=== PATIENT | male | born 1980 | race Caucasian/White ===

== ENCOUNTER 2020-03-17 13:10 | Outpatient (REF) | payer OTHER, SELFPAY | END 2020-03-17 13:11 | disposition home or self-care (01) | LOC: HO.LAB 13:10 | PROVIDERS: Visit Provider Internal Medicine | DX: Z20.822 Contact with and (suspected) exposure to COVID-19 (principal) | CPT/HCPCS: 36415; C9803; U0003; U0005 ==

== ENCOUNTER → 2020-12-12 15:11 | Outpatient (BNVA) | payer SELFPAY | PROVIDERS: Visit Provider Internal Medicine | DX: Z02.79 Encounter for issue of other medical certificate (principal) ==

== ENCOUNTER 2021-11-01 17:48 | Emergency (ER) | payer OTHER, SELFPAY ==
--- NOTE | ~2021-11-01 | XR_ITS ---
EXAMINATION: XR CHEST CLINICAL INFORMATION: Chest pain COMPARISON: None TECHNIQUE: Frontal view of the chest was obtained. FINDINGS: Lungs are hypoinflated with mild pulmonary vascular crowding and/or mild atelectasis. No airspace consolidation. No pleural effusion or pneumothorax. Cardiomediastinal silhouette is within normal limits. No evidence of pulmonary edema. No acute osseous injury. XR/XR chest 1V IMPRESSION: 1. Hypoinflated lungs with mild atelectasis. No acute pulmonary process identified.
--- NOTE | 2021-11-01 18:01 | ECG_ITS ---
Test Reason : chest pain Blood Pressure : / mmHG Vent. Rate : 073 BPM Atrial Rate : 073 BPM P-R Int : 154 ms QRS Dur : 080 ms QT Int : 398 ms P-R-T Axes : 038 071 096 degrees QTc Int : 438 ms Sinus rhythm with occasional Premature ventricular complexes T wave abnormality, consider lateral ischemia Abnormal ECG No previous ECGs available Referred By: Generic ED Physician Electronically Signed By:HAROLDO LYNN
--- NOTE | 2021-11-01 18:15 | ED_ITS ---
HPI - Chest Pain General Chief Complaint: Chest Pain Stated Complaint: chest and nck pain,palpatations Time Seen by Provider: 11/01/21 18:05 Source: patient Mode of arrival: ambulatory Limitations: no limitations History of Present Illness HPI narrative: Patient comes to the emergency room complaining of chest pressure that started approximately 20 hours ago. Patient states that he was at work, started feeling chest discomfort, occasional coughing. States that eventually the chest pressure statin radiating towards the left shoulder and left upper back. Patient went home, went to sleep hoping it would go away. In the morning, the symptoms had gotten better, but approximately 6 hours ago, patient started having chest pressure on the left side, and has been constant since then. Patient states that sometimes he feels a bit short of breath, then he takes big breaths and makes his chest hurt more. Related Data Previous Rx's Medication Instructions Recorded aspirin 81 mg capsule 81 mg PO DAILY #30 caps 11/01/21 Allergies Allergy/AdvReac Type Severity Reaction Status Date / Time Iodinated Contrast Media Allergy Mild swelling Unverified 10/29/19 17:58 [IV CONTRAST] of eyelids and hives 45 mins after Review of Systems Review of Systems: Constitutional : No Weight loss, No Fever, No Chills, No Night Sweats, No Fatigue, No Malaise ENT/Mouth : No Hearing loss, No Ear Pain, No Nasal Congestion, No Sinus Pain, No Hoarseness, No sore throat, No Rhinorrhea, No Swallowing Difficulty Eyes: No Eye Pain, No Swelling, No Redness, No Foreign Body, No Discharge, No Vision Changes Cardiovascular : Complaining of chest pressure constantly for the last 6 hours, intermittent shortness of breath Respiratory : No Cough, No Sputum, No Wheezing, No Smoke Exposure, No Dyspnea Gastrointestinal : No Nausea, No Vomiting, No Diarrhea, No Constipation, No abdominal Pain, No Hematochezia, No Melena Genitourinary : no irregular bleeding, No Dysuria, No Urinary Frequency, No Hematuria, No Urinary Incontinence, No Urgency, No Flank Pain, No Urinary Flow Changes, No Hesitancy Musculoskeletal : No joint pain, No Myalgias, No Joint Swelling Skin : No Skin Lesions, No rash Neuro : No Weakness, No Numbness, No Paresthesias, No Loss of Consciousness, No Dizziness, No Headache Psych : No Anxiety/Panic, No Depression, No SI/HI/AH/VH, No Social Issues, Heme/Lymph: No Bruising, No Bleeding,No Lymphadenopathy Endocrine : No Polyuria, No Polydipsia, No Temperature Intolerance [facility] Past Medical History Medical History Diabetes type 2, controlled Hyperlipidemia Hypertension Social History Social History Advance Directives: No Advance Directives Information Provided: No Physical Exam Vital Signs: Vital Signs: Last Vital Signs Temp 97.0 F 11/01/21 21:51 Pulse 67 11/01/21 21:51 Resp 16 11/01/21 21:51 BP 129/67 11/01/21 21:51 Pulse Ox 98 11/01/21 21:51 O2 Del Method 11/01/21 21:51 BMI result Body Mass Index 31.8 Const: Other: Appearance: Alert. Oriented X3. No acute distress. Eyes: Pupils equal, round and reactive to light. ENT: Pharynx normal. Neck: Normal inspection. Neck supple. No lymph nodes noted. No crepitus CVS: Normal heart rate and rhythm. Pulses normal. Normal S1 and S2, reproducible chest pressure/discomfort to palpation in the substernal and left- sided chest area Respiratory: No respiratory distress. Breath sounds normal. No Wheezing. No rales Abdomen: Soft and nontender. No rigidity. No distention. Skin: Skin warm and dry. Normal skin color. Normal skin turgor. Extremities: No lower extremity edema. No Lacerations. No Rash Neuro: Oriented X 3. No motor deficit. No sensory deficit. Moving all extremities. No slurred speech. CN 2 through 12 grossly intact Psych: calm, cooperative, a bit anxious Course Course Course Narrative: We do not have previous EKGs for comparison, patient's EKG from today shows T- wave inversions in V5 V6, PVCs, sinus rhythm, heart rate 73, QTC 438. All of patient's labs are pending. We will repeat EKG in 1 hour. EKG did not show any changes from 1st EKG. Patient was given aspirin. Troponin x2 is negative. Patient was discussed with Dr. Alston who initially recommended observation. Dr. Cleveland from the hospitalist team considers that this pain is atypical chest pain/musculoskeletal, also discussed the patient with Dr. Alston, who agrees to have the patient be discharged and have follow-up with Cardiology. MDM - Chest Pain Lab Data Result diagrams: 11/01/21 18:27 11/01/21 18:27 Labs: Lab Results 11/01/21 11/01/21 11/01/21 Range/Units 18:27 18:27 18:27 WBC 9.0 (4.8-10.8) X10*3/uL RBC 4.57 L (4.60-5.80) X10*6/uL Hgb 14.4 (14.0-18.0) g/dl Hct 41.5 L (42.0-52.0) % MCV 90.8 (80.0-98.0) fL MCH 31.5 (27.0-33.0) pg MCHC 34.7 (31.0-36.0) g/dl RDW 12.9 (11.0-16.0) % Plt Count 245 (160-400) X10*3/uL MPV 9.6 (9.4-12.4) fL Immature Gran % (Auto) 0.3 (0.0-0.4) % Neut % (Auto) 54.6 (45-73) % Lymph % (Auto) 34.0 (20-40) % Barnes % (Auto) 7.6 (2-11) % Eos % (Auto) 2.9 (0-4) % Baso % (Auto) 0.6 (0-2) % Lymph # (Auto) 3.1 (1.2-4.9) X10*3/uL Barnes # (Auto) 0.7 (0.1-1.2) X10*3/uL Eos # (Auto) 0.3 (0.0-0.4) X10*3/uL Baso # (Auto) 0.1 (0.0-0.2) X10*3/uL Abs Immat Gran (auto) 0.03 (0.00-0.03) X10*3/uL Absolute Neuts (auto) 4.9 (2.0-8.3) x10*3/uL Absolute Nucleated RBC 0.000 (0.0-0.012) X10*3/uL Nucleated RBC % (auto) 0.0 (0.0-0.2) /100WBC PT 11.8 (10.0-13.1) SEC INR 1.0 (0.9-1.1) APTT (26.0-36.4) SEC D-Dimer High Sensitivty NG/ML Sodium 139 (135-145) mmol/L Potassium 4.2 (3.3-5.1) mmol/L Chloride 102 (96-108) mmol/L Carbon Dioxide 26 (22-29) mmol/L Anion Gap 15 (12-20) BUN 15 (9-16) mg/dL Creatinine 0.98 (0.5-1.4) mg/dL Estim Creat Clear Calc 86.8 Estimated GFR > 60 Random Glucose 296 H (60-115) mg/dL Calcium 9.0 (8.4-10.2) mg/dL Magnesium 2.1 (1.6-2.6) mg/dL Total Bilirubin 0.5 (0.0-1.0) mg/dL Direct Bilirubin 0.2 (0.0-0.5) mg/dL AST 21 (5-37) U/L ALT 26 (0-40) U/L Alkaline Phosphatase 105 (39-117) U/L Troponin I High Sens (<3.5-35.0) ng/L Total Protein 7.6 (6.5-8.0) g/dL Albumin 4.6 (3.5-5.0) g/dL Urine Opiates Screen (Not Detect) Urine Fentanyl Screen (Not Detect) Ur Barbiturates Screen (Not Detect) Ur Phencyclidine Scrn (Not Detect) Ur Amphetamines Screen (Not Detect) U Benzodiazepines Scrn (Not Detect) Urine Cocaine Screen (Not Detect) U Marijuana (THC) Screen (Not Detect) COVID-19 ([facility]) (Negative) COVID-19 Clin Com 11/01/21 11/01/21 11/01/21 Range/Units 18:27 18:27 18:27 WBC (4.8-10.8) X10*3/uL RBC (4.60-5.80) X10*6/uL Hgb (14.0-18.0) g/dl Hct (42.0-52.0) % MCV (80.0-98.0) fL MCH (27.0-33.0) pg MCHC (31.0-36.0) g/dl RDW (11.0-16.0) % Plt Count (160-400) X10*3/uL MPV (9.4-12.4) fL Immature Gran % (Auto) (0.0-0.4) % Neut % (Auto) (45-73) % Lymph % (Auto) (20-40) % Barnes % (Auto) (2-11) % Eos % (Auto) (0-4) % Baso % (Auto) (0-2) % Lymph # (Auto) (1.2-4.9) X10*3/uL Barnes # (Auto) (0.1-1.2) X10*3/uL Eos # (Auto) (0.0-0.4) X10*3/uL Baso # (Auto) (0.0-0.2) X10*3/uL Abs Immat Gran (auto) (0.00-0.03) X10*3/uL Absolute Neuts (auto) (2.0-8.3) x10*3/uL Absolute Nucleated RBC (0.0-0.012) X10*3/uL Nucleated RBC % (auto) (0.0-0.2) /100WBC PT (10.0-13.1) SEC INR (0.9-1.1) APTT 38.3 H (26.0-36.4) SEC D-Dimer High Sensitivty < 150 NG/ML Sodium (135-145) mmol/L Potassium (3.3-5.1) mmol/L Chloride (96-108) mmol/L Carbon Dioxide (22-29) mmol/L Anion Gap (12-20) BUN (9-16) mg/dL Creatinine (0.5-1.4) mg/dL Estim Creat Clear Calc Estimated GFR Random Glucose (60-115) mg/dL Calcium (8.4-10.2) mg/dL Magnesium (1.6-2.6) mg/dL Total Bilirubin (0.0-1.0) mg/dL Direct Bilirubin (0.0-0.5) mg/dL AST (5-37) U/L ALT (0-40) U/L Alkaline Phosphatase (39-117) U/L Troponin I High Sens 3.6 (<3.5-35.0) ng/L Total Protein (6.5-8.0) g/dL Albumin (3.5-5.0) g/dL Urine Opiates Screen (Not Detect) Urine Fentanyl Screen (Not Detect) Ur Barbiturates Screen (Not Detect) Ur Phencyclidine Scrn (Not Detect) Ur Amphetamines Screen (Not Detect) U Benzodiazepines Scrn (Not Detect) Urine Cocaine Screen (Not Detect) U Marijuana (THC) Screen (Not Detect) COVID-19 ([facility]) Negative (Negative) COVID-19 Clin Com See Note 11/01/21 11/01/21 Range/Units 19:49 20:25 WBC (4.8-10.8) X10*3/uL RBC (4.60-5.80) X10*6/uL Hgb (14.0-18.0) g/dl Hct (42.0-52.0) % MCV (80.0-98.0) fL MCH (27.0-33.0) pg MCHC (31.0-36.0) g/dl RDW (11.0-16.0) % Plt Count (160-400) X10*3/uL MPV (9.4-12.4) fL Immature Gran % (Auto) (0.0-0.4) % Neut % (Auto) (45-73) % Lymph % (Auto) (20-40) % Barnes % (Auto) (2-11) % Eos % (Auto) (0-4) % Baso % (Auto) (0-2) % Lymph # (Auto) (1.2-4.9) X10*3/uL Barnes # (Auto) (0.1-1.2) X10*3/uL Eos # (Auto) (0.0-0.4) X10*3/uL Baso # (Auto) (0.0-0.2) X10*3/uL Abs Immat Gran (auto) (0.00-0.03) X10*3/uL Absolute Neuts (auto) (2.0-8.3) x10*3/uL Absolute Nucleated RBC (0.0-0.012) X10*3/uL Nucleated RBC % (auto) (0.0-0.2) /100WBC PT (10.0-13.1) SEC INR (0.9-1.1) APTT (26.0-36.4) SEC D-Dimer High Sensitivty NG/ML Sodium (135-145) mmol/L Potassium (3.3-5.1) mmol/L Chloride (96-108) mmol/L Carbon Dioxide (22-29) mmol/L Anion Gap (12-20) BUN (9-16) mg/dL Creatinine (0.5-1.4) mg/dL Estim Creat Clear Calc Estimated GFR Random Glucose (60-115) mg/dL Calcium (8.4-10.2) mg/dL Magnesium (1.6-2.6) mg/dL Total Bilirubin (0.0-1.0) mg/dL Direct Bilirubin (0.0-0.5) mg/dL AST (5-37) U/L ALT (0-40) U/L Alkaline Phosphatase (39-117) U/L Troponin I High Sens < 3.5 (<3.5-35.0) ng/L Total Protein (6.5-8.0) g/dL Albumin (3.5-5.0) g/dL Urine Opiates Screen Not Detected (Not Detect) Urine Fentanyl Screen Not Detected (Not Detect) Ur Barbiturates Screen Not Detected (Not Detect) Ur Phencyclidine Scrn Not Detected (Not Detect) Ur Amphetamines Screen Not Detected (Not Detect) U Benzodiazepines Scrn Not Detected (Not Detect) Urine Cocaine Screen Not Detected (Not Detect) U Marijuana (THC) Screen Not Detected (Not Detect) COVID-19 ([facility]) (Negative) COVID-19 Clin Com Scores Heart Score History: -0- slightly suspicious ECG: -1- non specific repolarization disturbance Age: -0- < or = 45 Risk factory: -2- 3 or more risk factors or treated atherosclerosis Troponin: -0- < or = normal limit Score: 3 Risk: 1.7% Discharge Plan Discharge Clinical Impression: Atypical chest pain Patient Disposition: Home, Self-Care Instructions: Chest Pain (ED) Additional Instructions: Please follow-up with your primary care physician tomorrow. If you have any worsening or new symptoms, please return to the emergency room or call 911 Prescriptions: New aspirin 81 mg capsule 81 mg PO DAILY Qty: 30 0RF
[2021-11-01 18:16] VITALS: BP 161/83; PULSE 76; RESP 14; TEMP 36.8; O2SAT 97
[2021-11-01 18:32] LABS: MANUAL DIFF FLAG NO
[2021-11-01 18:33] LABS: Basophils Absolute Auto 0.1 X10*3/uL (0.0-0.2); Basophils Percent Auto 0.6 % (0-2); Eosinophils Absolute Auto 0.3 X10*3/uL (0.0-0.4); Eosinophils Percent Auto 2.9 % (0-4); Hematocrit 41.5 % (42.0-52.0); Hemoglobin 14.4 g/dl (14.0-18.0); Imm Gran Abs Auto 0.03 X10*3/uL (0.00-0.03); Imm Gran Pct Auto 0.3 % (0.0-0.4); Lymphocytes Absolute Auto 3.1 X10*3/uL (1.2-4.9); Mean Corpuscular HGB Conc 34.7 g/dl (31.0-36.0); Mean Corpuscular Hemoglobin 31.5 pg (27.0-33.0); Mean Corpuscular Volume 90.8 fL (80.0-98.0); Mean Platelet Volume 9.6 fL (9.4-12.4); Monocytes Absolute Auto 0.7 X10*3/uL (0.1-1.2); Monocytes Percent Auto 7.6 % (2-11); Neutrophils Absolute Auto 4.9 x10*3/uL (2.0-8.3); Neutrophils Percent Auto 54.6 % (45-73); Platelet Count 245 X10*3/uL (160-400); Red Blood Count 4.57 X10*6/uL (4.60-5.80); Red Cell Distribution Width 12.9 % (11.0-16.0)
[2021-11-01 18:49] LABS: Prothrombin Time 11.8 SEC (10.0-13.1)
[2021-11-01 18:51] VITALS: BMI 31.8
[2021-11-01 18:52] VITALS: BP 160/85; PULSE 72; RESP 18; TEMP 36.8; O2SAT 97; BMI 31.8
[2021-11-01 18:52] LABS: Partial Thromboplastin Time 38.3 SEC (26.0-36.4)
[2021-11-01 18:54] LABS: Troponin-I High Sensitivity 3.6 ng/L (<3.5-35.0)
[2021-11-01 18:56] LABS: Alanine Aminotransferase 26 U/L (0-40); Albumin Level 4.6 g/dL (3.5-5.0); Alkaline Phosphatase 105 U/L (39-117); Anion Gap 15 (12-20); Aspartate Amino Transferase 21 U/L (5-37); Bilirubin Direct 0.2 mg/dL (0.0-0.5); Bilirubin Total 0.5 mg/dL (0.0-1.0); Blood Urea Nitrogen 15 mg/dL (9-16); Carbon Dioxide 26 mmol/L (22-29); Chloride 102 mmol/L (96-108); Creatinine Clr Calc Pharmacy 86.8; Estimated Glomerular Filt Rate > 60; Glucose Random 296 mg/dL (60-115); Magnesium 2.1 mg/dL (1.6-2.6); Potassium 4.2 mmol/L (3.3-5.1); Sodium 139 mmol/L (135-145); Total Protein 7.6 g/dL (6.5-8.0)
[2021-11-01 18:57] LABS: COVID-19 Test Negative (Negative)
[2021-11-01 19:29] LABS: D Dimer High Sensitivity < 150 NG/ML
[2021-11-01 19:48] VITALS: BP 143/71; PULSE 69; RESP 18; TEMP 36.9; O2SAT 98
--- NOTE | 2021-11-01 19:53 | ECG_ITS ---
Test Reason : CHEST PAIN Blood Pressure : / mmHG Vent. Rate : 067 BPM Atrial Rate : 067 BPM P-R Int : 158 ms QRS Dur : 080 ms QT Int : 412 ms P-R-T Axes : 035 061 128 degrees QTc Int : 435 ms Normal sinus rhythm ST & T wave abnormality, consider lateral ischemia and inferior ischemia Abnormal ECG When compared with ECG of 01-NOV-2021 18:03, Premature ventricular complexes are no longer Present Referred By: Radha Corbett Electronically Signed By:HAROLDO LYNN
--- NOTE | 2021-11-01 19:56 | PC.NURSE ---
PATIENT WAS GIVEN [employer] SANDWICH FOR DINNER .
[2021-11-01 20:12] LABS: Amphetamine Screen Urine Not Detected (Not Detect); Barbiturates, Urine Not Detected (Not Detect); Benzodiazepines Screen Urine Not Detected (Not Detect); Cannabinoid Screen Urine Not Detected (Not Detect); Cocaine Screen Urine Not Detected (Not Detect); Fentanyl, urine Not Detected (Not Detect); Opiate Screen Urine Not Detected (Not Detect); Phencyclidine Screen Urine Not Detected (Not Detect)
[2021-11-01 21:01] LABS: Troponin-I High Sensitivity < 3.5 ng/L (<3.5-35.0)
[2021-11-01 21:51] VITALS: BP 129/67; PULSE 67; RESP 16; TEMP 36.1; O2SAT 98
[2021-11-01] MEDS: Aspirin Enteric Coated 325 MG TABLET.DR PO (22:25)
--- NOTE | 2021-11-01 22:45 | PC.NURSE ---
Patient greenlandic speaking only. Patient c/o chest pressure 09/20 MD aware given aspirin po. Patient ambulates independently. Ekg done and labs. Will continue ot with plan of care.
--- NOTE | 2021-11-01 22:54 | PM.EVENT ---
Event Note Date of Service: 11/01/21 Event Note: This is a 41-year-old male with a pertinent history of type 2 diabetes mellitus on metformin and essential hypertension on lisinopril who presents to the emergency department for chest discomfort. Patient states the chest discomfort started 1 night prior to presentation and has been constant since. No sweating, shortness of breath. The chest discomfort does not increase on ambulation and does not relieve with rest. No similar episodes in the past. Patient did have an episode of nausea when he tried to eat chicken with rice on the day of presentation. It was associated with burping and symptoms of gastroesophageal reflux disease. Patient denies family history of early CAD/ACS. On physical examination, patient has reproducible chest discomfort on sternal palpation Assessment and plan: #. Chest discomfort, noncardiac: No concern for ACS at this time. Okay to discharge patient with close follow-up with PCP for optimization of risk factors : hypertension and diabetes mellitus. Noted negative troponin x2. May benefit from oral H2 susie/proton pump inhibitor. Does have nonsignificant ST changes on EKG, likely chronic. HEART score : 2, risk of MACE 0.9-1.7%.
[2021-11-01 23:47] VITALS: BP 126/71; PULSE 71; RESP 16; O2SAT 97
== END 2021-11-02 00:33 | disposition home or self-care (01) ==
PROVIDERS: Emergency Provider Emergency Medicine; PCP Internal Medicine
DX: R07.89 Other chest pain (principal); Z20.822 Contact with and (suspected) exposure to COVID-19; E11.9 Type 2 diabetes mellitus without complications; I10 Essential (primary) hypertension; E78.5 Hyperlipidemia, unspecified; Z79.84 Long term (current) use of oral hypoglycemic drugs; Z79.899 Other long term (current) drug therapy
CPT/HCPCS: 36415; 71045; 80048; 80076; 80307; 83735; 84484; 85025; 85379; 85610; 85730; 87635; 93005; 99284; 99285

== ENCOUNTER → 2021-11-02 13:39 | Outpatient (REF) | payer OTHER, SELFPAY ==
--- NOTE | 2021-11-02 13:48 | CA_ITS ---
Transthoracic Echocardiogram Patient (Last, First, Middle): Олег Ryder, Gender: Male Date of : 1980 Age: 41 Procedure Date: 11/02/2021 Procedure Type: Transthoracic Echocardiogram Location: OP Height: 152.4 cm Weight: 77.11 kg BSA: 1.74 m2 Heart Rate: bpm BP: 118 / 80 mmHg Lead Inspector: MAHSA Referring MD: Doug Alston MD Symptoms: R07.2 - Precordial pain Study Quality: Adequate ECG Rhythm: Sinus Conclusions: - The left ventricular systolic function is normal. The calculated ejection fraction is 65% by biplane method. - No obvious valvular pathology seen on this study. Findings Left Ventricle Normal left ventricular cavity size. There is normal left ventricular wall thickness. The left ventricular systolic function is normal. The calculated ejection fraction is 65% by biplane method. There is no evidence of regional wall motion abnormalities. Diastolic function is normal for age. Right Ventricle Normal right ventricular cavity size and systolic function. Atria Both atria are normal in size. Aortic Valve There is a normal trileaflet aortic valve. There is no aortic valve stenosis. There is no aortic valve regurgitation. Mitral Valve The mitral valve appears normal. There is no mitral valve regurgitation. There is no mitral valve stenosis. Pulmonic Valve The pulmonic valve is likely normal. Tricuspid Valve Normal tricuspid valve structure. There is trace tricuspid valve regurgitation. There is no evidence of pulmonary hypertension. Great Vessels The asc aorta is normal in size. Venous The inferior vena cava is normal in size and collapses greater than 50% with inspiration. Pericardium/Pleural There is no evidence of pericardial effusion. Prior Study Comparison No prior study available for comparison. Recommendations, Care & Conclusions No obvious valvular pathology seen on this study. Measurements 2D Linear Measurements IVSd: 0.99 0.6-0.9/0.6-1.0 cm LVIDd: 4.69 3.9-5.3/4.2-5.9 cm LVIDd Index: 2.70 2.4-3.2/2.2-3.1 cm/m2 LVIDs: 3.07 2.0-3.6 cm LVPWd: 0.98 0.7-1.1 cm LA Diam: 3.40 2.7-3.8/3.0-4.0 cm LAIDs Index: 1.95 1.5-2.3 cm/m2 LV Mass: 199.11 67-162/88-224 g LV Mass Index: 114.43 43-95/49-115 g/m2 LVOT Diam: 1.90 3.0+(-)1.3 cm 2D Systolic Function EF 4C: 64.70 >55% EF 2C: 65.90 >55% EF BiP: 64.70 >55% Mitral Valve MV Pk E: 0.69 MV PK A: 0.80 MV Decel Time: 157.00 E/A: 0.90 E'Lateral: 8.92 E'Medial: 6.09 E/E' Med: 11.30 E/E' Lat: 7.70 PHT: 46.00 MVA PHT: 4.78 Decel [place]: 4.41 Aortic Valve AoV Pk [place]: 1.40 AoV Mn [place]: 0.98 AoV VTI: 0.30 AoV Pk Grad: 8.00 Aov Mn Grad: 4.00 ZHOU Cont.VTI: 2.13 LVOT LVOT Pk [place]: 1.20 LVOT Mn [place]: 0.75 LVOT VTI: 0.23 LVOT Pk Grad: 6.00 LVOT Mn Grad: 3.00 LVOT Diam: 1.90 LVOT Area: 2.84 Diastolic Function MV Pk E: 0.69 MV Pk A: 0.80 E/A: 0.90 E'Medial: 6.09 E/E' Med: 11.30 E' Laterial: 8.92 E/E' Lat: 7.70 Right Ventricle TAPSE (mm): 21.20 TVS' [place]: 9.90 Tricuspid Valve TR Pk [place]: 2.07 TR Pk Grad: 17.00 RA Press: 3.00 RVSP: 20.00 Great Vessels Aorta Sinus of Valsalva: 3.36 2.0-3.[address] [place]: 2.35 1.7-3.4 cm Ao Asc: 3.10 2.1-3.4 cm Updated in Other Vendor System with Status of Final Doug Alston MD electronically signed on 11/02/2021 3:18:52 PM with status of Final
== END ==
LOC: HO.CARD 13:39
PROVIDERS: Visit Provider Internal Medicine
DX: R07.2 Precordial pain (principal)
CPT/HCPCS: 93306

== ENCOUNTER → 2021-11-28 08:48 | Outpatient (REF) | payer OTHER, SELFPAY ==
--- NOTE | 2021-11-28 08:51 | CA_ITS ---
Acquisition Time: 2021-11-28 08:57:05 Total Exercise Time: 00:06:00 Test Indications: R07.L2 PRECORDIAL PAIN Medications: SEE H Protocol: COLE Max HR: 129 BPM 72% of Pred: 179 BPM Max BP: 162/080 mmHG Max Work Load: 7.0 METS Exercise stress test with exercise 6 min of Cole protocol, achieving 72% MPHR, with report of 6/10 left chest pressure, without arrythmia, with normotensive response to exercise, with baseline EKG showing T wave abnormality/ inversions inferiorly and V4-V6 - then with exercise there are ST depressions V4-V6 suggestive of ischemia. In recovery his chest pressure gradually improved and resolved. Test reviewed with Dr Yee. Will order a pharmacological nuclear stress test for further evaluate for ischemia. Referred By: Doug Alston Overread By: MAG RAPP
== END ==
LOC: HO.CARD 08:48
PROVIDERS: Visit Provider Internal Medicine
DX: R07.2 Precordial pain (principal)
CPT/HCPCS: 93017

== ENCOUNTER → 2021-12-18 08:28 | Outpatient (REF) | payer OTHER, SELFPAY ==
--- NOTE | ~2021-12-18 | NM_ITS ---
Myocardial perfusion study Indication: Precordial chest pain to evaluate for myocardial ischemia Technique: The patient was brought in for a Lexiscan perfusion study on 12/18/2021. Patient performed low-level exercise and was injected 0.4 mg of Lexiscan intravenously. Within a minute of injection, 25 mCi of sestamibi was given intravenously. Images were obtained using the SPECT gamma camera interlaced with the gating device. Images were obtained in supine position. Resting perfusion study was performed on 12/19/2021. Patient was administered 25 mCi of sestamibi intravenously at rest. Images were then obtained in supine position. Images obtained with and without CT attenuation. Total DLP 88 mGy-cm. Images were processed with the software and compared side to side in short axis, horizontal long axis and vertical long axis views. Findings: The stress perfusion study was suboptimal due to intense subdiaphragmatic uptake interfering with inferior wall uptake and also reduced uptake in the myocardial segments. Non attenuated images show possibly moderately reduced uptake in the basal inferior and mildly reduced uptake in the mid and inferoapical wall of the LV myocardium. Inferolateral wall of the LV myocardium. Attenuation corrected images show diffusely reduced uptake in multiple segments.. The gated study shows normal LV systolic function with calculated LVEF of 52%. LV cavity is mildly dilated size. The gated study shows normal systolic wall thickening and contraction of segments. Resting study shows non attenuated images show mild thinning of the basal inferior wall of the LV myocardium. Attenuation corrected images show normal uptake of radiotracer in all segments of LV myocardium. Gating at rest reveals normal systolic wall motion with ejection fraction at 73%. The findings are consistent with suboptimal study on stress images this study difficult to interpret nondiagnostic.. NM/NM eddie perf SPECT rest & str Impression: 1. Myocardial perfusion imaging study shows nondiagnostic findings 2. Gated LVEF is 73% 3. Transient ischemic dilatation nondiagnostic EKG is nondiagnostic ischemia. Consider alternative imaging such as dobutamine stress echocardiogram
--- NOTE | 2021-12-18 08:33 | CA_ITS ---
Acquisition Time: 2021-12-18 08:34:30 Total Exercise Time: 00:02:00 Test Indications: R07.2, I10, R94.39 Medications: SEE H Protocol: LEXISCAN Max HR: 107 BPM 59% of Pred: 179 BPM Max BP: 136/078 mmHG Max Work Load: 1.6 METS Pharmaclogcial nuclear stress test with Lexiscan injection, while walking slow on treadmill, with report of pressure in chest, dizziness, without arrythmia, with normotensive response to injection, with nondiagnostic EKG for ischemia: EKG shows T wave inversions inferiorly, V4-V6 throughout test. In recovery he was treated with Aminophylline 75mg IVP to reverse Lexiscan with resolution of symptoms. Nuclear images pending. Test reviewed with Dr Yee. Referred By: Brit Mares Overread By: BRIT MARES
== END ==
LOC: HO.CARD 08:28
PROVIDERS: Visit Provider Nurse Practitioner Family
DX: R07.2 Precordial pain (principal); E11.9 Type 2 diabetes mellitus without complications; I10 Essential (primary) hypertension; R94.39 Abnormal result of other cardiovascular function study
CPT/HCPCS: 78452; 93017; A9500; J0280; J2785

== ENCOUNTER 2022-03-24 15:36 | Emergency (ER) | payer OTHER, SELFPAY ==
--- NOTE | ~2022-03-24 | US_ITS ---
EXAMINATION: US SCROTUM CLINICAL INFORMATION: Right testicular pain. COMPARISON: None TECHNIQUE: A sonogram of the scrotum was performed assessing reynolds-scale appearance and color Doppler flow. Spectral Doppler analysis of the arterial and venous flow were performed in the testes bilaterally. FINDINGS: RIGHT: Right testicle measures 3.9 x 1.9 x 2.9 cm, volume 11.0 mL. No focal testicular parenchymal lesions are visualized. Spectral Doppler analysis of the arterial and venous flow is normal in the right testis. Right epididymal head is normal in size. Small right hydrocele. No varicocele is seen. Right epididymal Doppler flow is normal. LEFT: Left testicle measures 4.2 x 2.0 x 2.5 cm, volume 10.8 mL. No focal testicular parenchymal lesions are visualized. Spectral Doppler analysis of the arterial and venous flow is normal in the left testis. Left epididymal head demonstrates a tiny 0.4 cm incidental cyst. Small left hydrocele. No significant varicocele is seen. Left epididymal Doppler flow is normal. US/US scrotum doppler IMPRESSION: Small bilateral hydroceles. Incidental tiny left epididymal head cyst. Otherwise unremarkable scrotal ultrasound.
--- NOTE | ~2022-03-24 | CT_ITS ---
EXAMINATION: CT ABDOMEN AND PELVIS WITHOUT CONTRAST CLINICAL INFORMATION: right groin pain . COMPARISON: 11/22/2018. TECHNIQUE: Multidetector volumetric imaging was performed from the superior aspect of the liver through the pubic symphysis without contrast per renal stone protocol. Sagittal and coronal reformatted images were obtained on the technologist workstation. This CT examination was performed using dose optimization techniques as appropriate, variously including the following: *Automated exposure control *Adjustment of mA and/or kV according to patient size (this includes techniques or standardized protocols for targeted exams where dose is matched to indication/reason for exam; i.e. extremities or head) *Use of iterative reconstruction technique DLP: 559 mGy-cm. FINDINGS: LUNG BASES: The visualized lung bases are unremarkable. LIVER, GALLBLADDER, BILIARY TREE: The non-contrast liver is normal in size, shape, and attenuation. No focal hepatic lesion or biliary ductal dilatation is present. The gallbladder is contracted but otherwise unremarkable with no evidence of radiopaque gallstones, gallbladder wall thickening, or obvious pericholecystic inflammatory changes. PANCREAS: Unremarkable. SPLEEN: Multiple small splenic granulomas incidentally noted. ADRENAL GLANDS: Unremarkable. KIDNEYS AND URETERS: The kidneys are normal in size, shape, and attenuation. No hydronephrosis, hydroureter, or calculi seen. No perinephric stranding. BLADDER: Unremarkable. GASTROINTESTINAL TRACT: Few scattered colonic diverticula are seen but no colonic wall thickening or pericolonic inflammatory change to suggest diverticulitis. The appendix is surgically absent. Visualized small bowel unremarkable ABDOMINAL WALL: No significant hernia is appreciated. LYMPHOVASCULAR STRUCTURES: No lymphadenopathy. The aorta is unremarkable.. PELVIC VISCERA: Unremarkable. OSSEUS STRUCTURES: Unremarkable. CT/CT abdomen pelvis wo IV con IMPRESSION: No acute intra-abdominal process seen. No renal or ureteric calculi. No obstructive changes to the kidneys. The appendix is surgically absent.
--- NOTE | ~2022-03-24 | US_ITS ---
EXAMINATION: US SCROTUM CLINICAL INFORMATION: Right testicular pain. COMPARISON: None TECHNIQUE: A sonogram of the scrotum was performed assessing reynolds-scale appearance and color Doppler flow. Spectral Doppler analysis of the arterial and venous flow were performed in the testes bilaterally. FINDINGS: RIGHT: Right testicle measures 3.9 x 1.9 x 2.9 cm, volume 11.0 mL. No focal testicular parenchymal lesions are visualized. Spectral Doppler analysis of the arterial and venous flow is normal in the right testis. Right epididymal head is normal in size. Small right hydrocele. No varicocele is seen. Right epididymal Doppler flow is normal. LEFT: Left testicle measures 4.2 x 2.0 x 2.5 cm, volume 10.8 mL. No focal testicular parenchymal lesions are visualized. Spectral Doppler analysis of the arterial and venous flow is normal in the left testis. Left epididymal head demonstrates a tiny 0.4 cm incidental cyst. Small left hydrocele. No significant varicocele is seen. Left epididymal Doppler flow is normal. US/US scrotum IMPRESSION: Small bilateral hydroceles. Incidental tiny left epididymal head cyst. Otherwise unremarkable scrotal ultrasound.
[2022-03-24 15:46] VITALS: BP 148/85; PULSE 81; RESP 20; TEMP 36.6; O2SAT 98; BMI 28.3
--- NOTE | 2022-03-24 15:48 | ED_ITS ---
HPI - Male Genitourinary General Chief complaint: General Medical <HALEIGH Bashir - Last Filed: 03/24/22 15:54> Stated complaint: Right testicular pain <HALEIGH Bashir - Last Filed: 03/24/22 15:54> Time Seen by Provider: 03/24/22 17:29 <HALEIGH Bashir - Last Filed: 03/24/22 15:54> Source: patient <HALEIGH Vivas - Last Filed: 03/25/22 16:39> Mode of arrival: ambulatory <HALEIGH Vivas - Last Filed: 03/25/22 16:39> Limitations: no limitations <HALEIGH Vivas Last Filed: 03/25/22 16:39> History of Present Illness HPI Narrative: 41-year-old male presents to ED for right groin pain there is worse on movement and also 1 episode of rectal bleeding after painful straining bowel movement this morning. Patient states the groin pain for couple a days. Patient denies any testicular pain, penile discharge testicular pain, or hematuria. Patient states he is hyperglycemic because he drank coffee with 2 sugars at 15:00 <HALEIGH Vivas - Last Filed: 03/25/22 16:39> Related Data Home medications: Home Medications Medication Instructions Recorded Confirmed lisinopril 20 mg tablet 20 mg PO DAILY 11/02/21 11/02/21 metformin 500 mg tablet,extended 1,000 mg PO BID 11/02/21 11/02/21 release 24 hr Previous Rx's Medication Instructions Recorded aspirin 81 mg capsule 81 mg PO DAILY #30 caps 11/01/21 diphenhydramine HCl 25 mg capsule 25 mg PO BID sleep 2 days #3 caps 12/21/21 (Benadryl) famotidine 20 mg tablet (Pepcid) 20 mg PO BID 2 days #3 tabs 12/21/21 prednisone 20 mg tablet 20 mg PO BID 2 days #3 tabs 12/21/21 naproxen 500 mg tablet 500 mg PO BID PRN pain 7 days #14 03/24/22 tabs <HALEIGH Bashir - Last Filed: 03/24/22 15:54> Allergies/Adverse reactions: Allergies Allergy/AdvReac Type Severity Reaction Status Date / Time Iodinated Contrast Media Allergy Mild swelling Verified 11/02/21 13:00 [IV CONTRAST] of eyelids and hives 45 mins after <HALEIGH Bashir - Last Filed: 03/24/22 15:54> Review of Systems Review of Systems: Right groin pain possible hernia, 1 episode of rectal bleeding. <HALEIGH Vivas - Last Filed: 03/25/22 16:39> Yes all other systems are reviewed and are negative <HALEIGH Vivas - Last Filed: 03/25/22 16:39> FORMERLY [facility] Past Medical History Medical History: Medical History (Updated 03/25/22 @ 00:01 by Gold Thacker) Diabetes type 2, controlled Hyperlipidemia Hypertension <HALEIGH Bashir - Last Filed: 03/24/22 15:54> Surgical History: Surgical History (Updated 11/02/21 @ 13:03 by KEKE Badillo) History of appendectomy <HALEIGH Bashir - Last Filed: 03/24/22 15:54> Family History Family History: Family History (Updated 11/02/21 @ 13:03 by KEKE Badillo) Father No problems noted. Mother No problems noted. <HALEIGH Bashir - Last Filed: 03/24/22 15:54> Social History Social History: Social History (Updated 11/02/21 @ 13:03 by KEKE Badillo) Patient Tobacco Use Status: Never used Tobacco Smoked in Last 30 Days: No Use of substances other than those prescribed or required for medical reasons: No Any prior treatment program specific to substance use: No Advance Directives: No Advance Directives Information Provided: No <HALEIGH Bashir - Last Filed: 03/24/22 15:54> Physical Exam Vital Signs: Vital Signs: Last Vital Signs Temp 98.1 F 03/24/22 20:00 Pulse 61 03/24/22 20:00 Resp 16 03/24/22 20:00 BP 122/65 03/24/22 20:00 Pulse Ox 98 03/24/22 20:00 O2 Del Method 03/24/22 20:00 BMI result Body Mass Index 28.3 <HALEIGH Bashir - Last Filed: 03/24/22 15:54> Vital Signs: Last Vital Signs Temp 98.1 F 03/24/22 20:00 Pulse 61 03/24/22 20:00 Resp 16 03/24/22 20:00 BP 122/65 03/24/22 20:00 Pulse Ox 98 03/24/22 20:00 O2 Del Method 03/24/22 20:00 BMI result Body Mass Index 28.3 <HALEIGH Vivas Last Filed: 03/25/22 16:39> Const: General: cooperative, healthy appearing, comfortable, no acute distress, well developed, alert, awake and Physically active <HALEIGH Vivas Last Filed: 03/25/22 16:39> Orientation/consciousness: oriented to person, oriented to place, oriented to ti me and patient oriented x3 <HALEIGH Vivas Last Filed: 03/25/22 16:39> HEENT: Head: Yes normal to inspection, Yes No palpable skull fracture present, Yes normocephalic, Yes atraumatic and No abrasion <HAELIGH Vivas Last Filed: 03/25/22 16:39> Eyes: General: appearance normal, both eyes and all related structures <HALEIGH Vivas Last Filed: 03/25/22 16:39> Neck: Neck: Yes normal visual inspection, Yes full ROM, Yes no lymphadenopathy, Yes no meningeal signs, Yes trachea midline, Yes supple, No anterior neck swelling and No tender <HALEIGH Vivas Last Filed: 03/25/22 16:39> Chest: Chest palpation & inspection: normal inspection of the chest and normal palpation of entire chest wall <HALEIGH Vivas Last Filed: 03/25/22 16:39> Resp: Effort & Inspection: normal respiratory effort and able to speak in complete sentences <HALEIGH Vivas Last Filed: 03/25/22 16:39> Auscultation: clear to auscultation bilaterally <HALEIGH Vivas Last Filed: 03/25/22 16:39> GI: Other: Rectal exam negative for hemorrhoids, berta blood, melena, or black stool. <HALEIGH Vivas Last Filed: 03/25/22 16:39> Inspection: Yes normal to inspection and No abdominal wall ecchymosis <HALEIGH Vivas Last Filed: 03/25/22 16:39> Palpation (GI): Soft to palpation, not firm, nontender, no guarding and not rigid <HALEIGH Vivas Last Filed: 03/25/22 16:39> : Other: Right groin negative for any bulging mass on palpation or coughing. Negative for testicular tenderness, high-riding testes, swelling or tenderness on pal pation <HALEIGH Vivas - Last Filed: 03/25/22 16:39> General: No CVA tenderness and Yes no CVA tenderness <HALEIGH Vivas Last Filed: 03/25/22 16:39> Male General Exam: Yes normal external exam <HALEIGH Vivas Last Filed: 03/25/22 16:39> Penis: normal penis <HALEIGH Vivas Last Filed: 03/25/22 16:39> Meatus: meatus normal <HALEIGH Vivas Last Filed: 03/25/22 16:39> Scrotum: scrotum normal <HALEIGH Vivas Last Filed: 03/25/22 16:39> Testes: Testes normal <HALEIGH Vivas Last Filed: 03/25/22 16:39> Back/Spine/Pelvis: Back: no CVA tenderness, No CVA tenderness and No back tenderness <HALEIGH Vivas Last Filed: 03/25/22 16:39> Skin: General skin exam: no rashes or lesions noted and elasticity normal <HALEIGH Vivas Last Filed: 03/25/22 16:39> Neuro: General: oriented to person, oriented to place, oriented to time, patient oriented x3, gait normal, tone normal, moves all extremities, Normal light touch and pain sensation, no meningeal signs, no focal motor deficits and CN's II-XI intact bilaterally <HALEIGH Vivas Last Filed: 03/25/22 16:39> Extrem: General: Yes normal to inspection and Yes full ROM <HALEIGH Vivas Last Filed: 03/25/22 16:39> Psych: Appearance: grossly normal, well kempt and not disheveled <HALEIGH Vivas Last Filed: 03/25/22 16:39> Course Course Course Narrative: CHAKA-15:55pm 41yoM who is Bahamian-speaking presenting to the ER with complaints of right groin pain radiating to his testicles. Reports that this has been going on for 1 week. Reports associated hematuria with clots and black abnormal discharge when he urinates. Reports he is denies any thoughts of STDs. Reports he was having some itchiness all over his body. Denies any actual abdominal pain or any fevers or nausea vomiting or any back pain or any other symptoms complaints or concerns at this time. Plan: Will obtain labs, CT scan abdomen pelvis without IV contrast and a testicular ultrasound along with a UA. Patient will be sent away in to be evaluated the ED. <HALEIGH Bashir - Last Filed: 03/24/22 15:54> Reevaluation(s) Reevaluation #1: Once again patient denies any complaints just right groin pain and 1 episode of rectal bleeding. and rectal exam benign. CT scan and ultrasound of the testicle negative. Patient hyperglycemic will give IV fluids. Patient not in distress. <HALEIGH Vivas - Last Filed: 03/25/22 16:39> Time: 18:26 <HALEIGH Vivas - Last Filed: 03/25/22 16:39> Reevaluation #2: Repeat glucose normal with fluids. Occult stool sample negative for blood . Diagnosis muscle strain of groin area. Patient to be discharged. Ultrasound indicates hydroceles. Negative for epididymitis or torsion. <HALEIGH Vivas - Last Filed: 03/25/22 16:39> Time: 21:42 <HALEIGH Vivas - Last Filed: 03/25/22 16:39> Medications Administered Discontinued Medications Generic Name Dose Route Start Last Admin Trade Name Freq PRN Reason Stop Dose Admin Sodium Chloride 1,000 mls @ 999 mls/hr 03/24/22 17:54 03/24/22 21:20 Ns IV 03/24/22 18:54 Infused .Q1H1M STA Infusion Sodium Chloride 1,000 mls @ 999 mls/hr 03/24/22 17:54 03/24/22 21:20 Ns IV 03/24/22 18:54 Infused .Q1H1M STA Infusion <HALEIGH Bashir - Last Filed: 03/24/22 15:54> Medications Administered Discontinued Medications Generic Name Dose Route Start Last Admin Trade Name Luis A PRN Reason Stop Dose Admin Sodium Chloride 1,000 mls @ 999 mls/hr 03/24/22 17:54 03/24/22 21:20 Ns IV 03/24/22 18:54 Infused .Q1H1M STA Infusion Sodium Chloride 1,000 mls @ 999 mls/hr 03/24/22 17:54 03/24/22 21:20 Ns IV 03/24/22 18:54 Infused .Q1H1M STA Infusion <HALEIGH Vivas - Last Filed: 03/25/22 16:39> Medical Decision Making Medical Decision Making MDM Narrative: 41-year-old male presents to ED for right groin pain worse on movement. Secondary complaint 1 episode of rectal bleeding. Vital signs stable. Patient on any distress. History physical exam does not indicate GI bleed, hernia, torsion, appendicitis, epididymitis, or hip fracture. <HALEIGH Vivas - Last Filed: 03/25/22 16:39> Differential Diagnosis Differential Diagnoses: The differential diagnosis associated with the presentation includes (Kidney stone, torsion, GI bleed, colitis, appendicitis, and hip fracture.) <HALEIGH Vivas - Last Filed: 03/25/22 16:39> Admission/Observation Consideration of admission/observation: Escalation of care including admission/observation considered <HALEIGH Vivas - Last Filed: 03/25/22 16:39> observation considered if any labs abnormality <HALEIGH Vivas - Last Filed: 03/25/22 16:39> Lab Data [facility] Lab Attestation statement: I reviewed the patient's lab results. <HALEIGH Vivas - Last Filed: 03/25/22 16:39> Result Diagrams: 03/24/22 16:40 03/24/22 16:40 <HALEIGH Bashir - Last Filed: 03/24/22 15:54> Labs: Lab Results 03/24/22 03/24/22 03/24/22 Range/Units 16:40 16:40 16:40 WBC 8.3 (4.8-10.8) X10*3/uL RBC 4.70 (4.60-5.80) X10*6/uL Hgb 14.5 (14.0-18.0) g/dl Hct 41.9 L (42.0-52.0) % MCV 89.1 (80.0-98.0) fL MCH 30.9 (27.0-33.0) pg MCHC 34.6 (31.0-36.0) g/dl RDW 12.1 (11.0-16.0) % Plt Count 225 (160-400) X10*3/uL MPV 10.0 (9.4-12.4) fL Immature Gran % (Auto) 0.2 (0.0-0.4) % Neut % (Auto) 57.4 (45-73) % Lymph % (Auto) 31.2 (20-40) % Dawson % (Auto) 8.5 (2-11) % Eos % (Auto) 2.1 (0-4) % Baso % (Auto) 0.6 (0-2) % Lymph # (Auto) 2.6 (1.2-4.9) X10*3/uL Dawson # (Auto) 0.7 (0.1-1.2) X10*3/uL Eos # (Auto) 0.2 (0.0-0.4) X10*3/uL Baso # (Auto) 0.1 (0.0-0.2) X10*3/uL Abs Immat Gran (auto) 0.02 (0.00-0.03) X10*3/uL Absolute Neuts (auto) 4.7 (2.0-8.3) x10*3/uL Absolute Nucleated RBC 0.000 (0.0-0.012) X10*3/uL Nucleated RBC % (auto) 0.0 (0.0-0.2) /100WBC PT 11.4 (10.0-13.1) SEC INR 1.0 (0.9-1.1) Sodium 135 (135-145) mmol/L Potassium 4.4 (3.3-5.1) mmol/L Chloride 101 (96-108) mmol/L Carbon Dioxide 25 (22-29) mmol/L Anion Gap 13 (12-20) BUN 12 (9-16) mg/dL Creatinine 0.95 (0.5-1.4) mg/dL Estim Creat Clear Calc 98.0 Estimated GFR > 60 POC Glucose (60-115) mg/dL Random Glucose 486 H* (60-115) mg/dL Calcium 9.2 (8.4-10.2) mg/dL Magnesium 1.9 (1.6-2.6) mg/dL Total Bilirubin 0.4 (0.0-1.0) mg/dL AST 13 (5-37) U/L ALT 19 (0-40) U/L Alkaline Phosphatase 149 H (39-117) U/L Total Protein 6.8 (6.5-8.0) g/dL Albumin 4.2 (3.5-5.0) g/dL Urine Color Urine Appearance Urine pH (5.0-9.0) Ur Specific [place] (1.005-1.025) Urine Protein (Neg-Trace) mg/dL Urine Glucose (UA) (Negative) mg/dL Urine Ketones (Negative) mg/dL Urine Blood (Negative) Urine Nitrite (Negative) Ur Leukocyte Esterase (Negative) Urine RBC (0-2) /HPF Urine WBC (0-5) /HPF Ur Squamous Epith Cells (0-2) /HPF Urine Bacteria (None Seen) Hyaline Casts (0-2) /LPF Stool Occult Blood (NEGATIVE) Acetone, Qual Negative (Negative) Chlam trachomat DNA PCR (Not Detect.) Influenza Type A (PCR) (Negative) Influenza Type B (PCR) (Negative) N.gonorrhoeae DNA (PCR) (Not Detect.) RSV RNA Qual (PCR) (Negative) SARS-CoV-2 RNA (RT-PCR) (Negative) 03/24/22 03/24/22 03/24/22 Range/Units 16:40 18:20 21:17 WBC (4.8-10.8) X10*3/uL RBC (4.60-5.80) X10*6/uL Hgb (14.0-18.0) g/dl Hct (42.0-52.0) % MCV (80.0-98.0) fL MCH (27.0-33.0) pg MCHC (31.0-36.0) g/dl RDW (11.0-16.0) % Plt Count (160-400) X10*3/uL MPV (9.4-12.4) fL Immature Gran % (Auto) (0.0-0.4) % Neut % (Auto) (45-73) % Lymph % (Auto) (20-40) % Dawson % (Auto) (2-11) % Eos % (Auto) (0-4) % Baso % (Auto) (0-2) % Lymph # (Auto) (1.2-4.9) X10*3/uL Dawson # (Auto) (0.1-1.2) X10*3/uL Eos # (Auto) (0.0-0.4) X10*3/uL Baso # (Auto) (0.0-0.2) X10*3/uL Abs Immat Gran (auto) (0.00-0.03) X10*3/uL Absolute Neuts (auto) (2.0-8.3) x10*3/uL Absolute Nucleated RBC (0.0-0.012) X10*3/uL Nucleated RBC % (auto) (0.0-0.2) /100WBC PT (10.0-13.1) SEC INR (0.9-1.1) Sodium (135-145) mmol/L Potassium (3.3-5.1) mmol/L Chloride (96-108) mmol/L Carbon Dioxide (22-29) mmol/L Anion Gap (12-20) BUN (9-16) mg/dL Creatinine (0.5-1.4) mg/dL Estim Creat Clear Calc Estimated GFR POC Glucose 251 H (60-115) mg/dL Random Glucose (60-115) mg/dL Calcium (8.4-10.2) mg/dL Magnesium (1.6-2.6) mg/dL Total Bilirubin (0.0-1.0) mg/dL AST (5-37) U/L ALT (0-40) U/L Alkaline Phosphatase (39-117) U/L Total Protein (6.5-8.0) g/dL Albumin (3.5-5.0) g/dL Urine Color Urine Appearance Urine pH (5.0-9.0) Ur Specific [place] (1.005-1.025) Urine Protein (Neg-Trace) mg/dL Urine Glucose (UA) (Negative) mg/dL Urine Ketones (Negative) mg/dL Urine Blood (Negative) Urine Nitrite (Negative) Ur Leukocyte Esterase (Negative) Urine RBC (0-2) /HPF Urine WBC (0-5) /HPF Ur Squamous Epith Cells (0-2) /HPF Urine Bacteria (None Seen) Hyaline Casts (0-2) /LPF Stool Occult Blood NEGATIVE (NEGATIVE) Acetone, Qual (Negative) Chlam trachomat DNA PCR (Not Detect.) Influenza Type A (PCR) NEGATIVE (Negative) Influenza Type B (PCR) NEGATIVE (Negative) N.gonorrhoeae DNA (PCR) (Not Detect.) RSV RNA Qual (PCR) NEGATIVE (Negative) SARS-CoV-2 RNA (RT-PCR) NEGATIVE (Negative) 03/24/22 03/24/22 Range/Units 21:28 21:28 WBC (4.8-10.8) X10*3/uL RBC (4.60-5.80) X10*6/uL Hgb (14.0-18.0) g/dl Hct (42.0-52.0) % MCV (80.0-98.0) fL MCH (27.0-33.0) pg MCHC (31.0-36.0) g/dl RDW (11.0-16.0) % Plt Count (160-400) X10*3/uL MPV (9.4-12.4) fL Immature Gran % (Auto) (0.0-0.4) % Neut % (Auto) (45-73) % Lymph % (Auto) (20-40) % Dawson % (Auto) (2-11) % Eos % (Auto) (0-4) % Baso % (Auto) (0-2) % Lymph # (Auto) (1.2-4.9) X10*3/uL Dawson # (Auto) (0.1-1.2) X10*3/uL Eos # (Auto) (0.0-0.4) X10*3/uL Baso # (Auto) (0.0-0.2) X10*3/uL Abs Immat Gran (auto) (0.00-0.03) X10*3/uL Absolute Neuts (auto) (2.0-8.3) x10*3/uL Absolute Nucleated RBC (0.0-0.012) X10*3/uL Nucleated RBC % (auto) (0.0-0.2) /100WBC PT (10.0-13.1) SEC INR (0.9-1.1) Sodium (135-145) mmol/L Potassium (3.3-5.1) mmol/L Chloride (96-108) mmol/L Carbon Dioxide (22-29) mmol/L Anion Gap (12-20) BUN (9-16) mg/dL Creatinine (0.5-1.4) mg/dL Estim Creat Clear Calc Estimated GFR POC Glucose (60-115) mg/dL Random Glucose (60-115) mg/dL Calcium (8.4-10.2) mg/dL Magnesium (1.6-2.6) mg/dL Total Bilirubin (0.0-1.0) mg/dL AST (5-37) U/L ALT (0-40) U/L Alkaline Phosphatase (39-117) U/L Total Protein (6.5-8.0) g/dL Albumin (3.5-5.0) g/dL Urine Color Yellow Urine Appearance Clear Urine pH 6.5 (5.0-9.0) Ur Specific [place] 1.020 (1.005-1.025) Urine Protein Negative (Neg-Trace) mg/dL Urine Glucose (UA) >=1000 H (Negative) mg/dL Urine Ketones Negative (Negative) mg/dL Urine Blood Negative (Negative) Urine Nitrite Negative (Negative) Ur Leukocyte Esterase Negative (Negative) Urine RBC 0-2 (0-2) /HPF Urine WBC 0-5 (0-5) /HPF Ur Squamous Epith Cells 0-2 (0-2) /HPF Urine Bacteria None Seen (None Seen) Hyaline Casts 0-2 (0-2) /LPF Stool Occult Blood (NEGATIVE) Acetone, Qual (Negative) Chlam trachomat DNA PCR NOT DETECTED (Not Detect.) Influenza Type A (PCR) (Negative) Influenza Type B (PCR) (Negative) N.gonorrhoeae DNA (PCR) NOT DETECTED (Not Detect.) RSV RNA Qual (PCR) (Negative) SARS-CoV-2 RNA (RT-PCR) (Negative) <HALEIGH Bashir - Last Filed: 03/24/22 15:54> Lab Results 03/24/22 03/24/22 03/24/22 Range/Units 16:40 16:40 16:40 WBC 8.3 (4.8-10.8) X10*3/uL RBC 4.70 (4.60-5.80) X10*6/uL Hgb 14.5 (14.0-18.0) g/dl Hct 41.9 L (42.0-52.0) % MCV 89.1 (80.0-98.0) fL MCH 30.9 (27.0-33.0) pg MCHC 34.6 (31.0-36.0) g/dl RDW 12.1 (11.0-16.0) % Plt Count 225 (160-400) X10*3/uL MPV 10.0 (9.4-12.4) fL Immature Gran % (Auto) 0.2 (0.0-0.4) % Neut % (Auto) 57.4 (45-73) % Lymph % (Auto) 31.2 (20-40) % Dawson % (Auto) 8.5 (2-11) % Eos % (Auto) 2.1 (0-4) % Baso % (Auto) 0.6 (0-2) % Lymph # (Auto) 2.6 (1.2-4.9) X10*3/uL Dawson # (Auto) 0.7 (0.1-1.2) X10*3/uL Eos # (Auto) 0.2 (0.0-0.4) X10*3/uL Baso # (Auto) 0.1 (0.0-0.2) X10*3/uL Abs Immat Gran (auto) 0.02 (0.00-0.03) X10*3/uL Absolute Neuts (auto) 4.7 (2.0-8.3) x10*3/uL Absolute Nucleated RBC 0.000 (0.0-0.012) X10*3/uL Nucleated RBC % (auto) 0.0 (0.0-0.2) /100WBC PT 11.4 (10.0-13.1) SEC INR 1.0 (0.9-1.1) Sodium 135 (135-145) mmol/L Potassium 4.4 (3.3-5.1) mmol/L Chloride 101 (96-108) mmol/L Carbon Dioxide 25 (22-29) mmol/L Anion Gap 13 (12-20) BUN 12 (9-16) mg/dL Creatinine 0.95 (0.5-1.4) mg/dL Estim Creat Clear Calc 98.0 Estimated GFR > 60 POC Glucose (60-115) mg/dL Random Glucose 486 H* (60-115) mg/dL Calcium 9.2 (8.4-10.2) mg/dL Magnesium 1.9 (1.6-2.6) mg/dL Total Bilirubin 0.4 (0.0-1.0) mg/dL AST 13 (5-37) U/L ALT 19 (0-40) U/L Alkaline Phosphatase 149 H (39-117) U/L Total Protein 6.8 (6.5-8.0) g/dL Albumin 4.2 (3.5-5.0) g/dL Urine Color Urine Appearance Urine pH (5.0-9.0) Ur Specific [place] (1.005-1.025) Urine Protein (Neg-Trace) mg/dL Urine Glucose (UA) (Negative) mg/dL Urine Ketones (Negative) mg/dL Urine Blood (Negative) Urine Nitrite (Negative) Ur Leukocyte Esterase (Negative) Urine RBC (0-2) /HPF Urine WBC (0-5) /HPF Ur Squamous Epith Cells (0-2) /HPF Urine Bacteria (None Seen) Hyaline Casts (0-2) /LPF Stool Occult Blood (NEGATIVE) Acetone, Qual Negative (Negative) Chlam trachomat DNA PCR (Not Detect.) Influenza Type A (PCR) (Negative) Influenza Type B (PCR) (Negative) N.gonorrhoeae DNA (PCR) (Not Detect.) RSV RNA Qual (PCR) (Negative) SARS-CoV-2 RNA (RT-PCR) (Negative) 03/24/22 03/24/22 03/24/22 Range/Units 16:40 18:20 21:17 WBC (4.8-10.8) X10*3/uL RBC (4.60-5.80) X10*6/uL Hgb (14.0-18.0) g/dl Hct (42.0-52.0) % MCV (80.0-98.0) fL MCH (27.0-33.0) pg MCHC (31.0-36.0) g/dl RDW (11.0-16.0) % Plt Count (160-400) X10*3/uL MPV (9.4-12.4) fL Immature Gran % (Auto) (0.0-0.4) % Neut % (Auto) (45-73) % Lymph % (Auto) (20-40) % Dawson % (Auto) (2-11) % Eos % (Auto) (0-4) % Baso % (Auto) (0-2) % Lymph # (Auto) (1.2-4.9) X10*3/uL Dawson # (Auto) (0.1-1.2) X10*3/uL Eos # (Auto) (0.0-0.4) X10*3/uL Baso # (Auto) (0.0-0.2) X10*3/uL Abs Immat Gran (auto) (0.00-0.03) X10*3/uL Absolute Neuts (auto) (2.0-8.3) x10*3/uL Absolute Nucleated RBC (0.0-0.012) X10*3/uL Nucleated RBC % (auto) (0.0-0.2) /100WBC PT (10.0-13.1) SEC INR (0.9-1.1) Sodium (135-145) mmol/L Potassium (3.3-5.1) mmol/L Chloride (96-108) mmol/L Carbon Dioxide (22-29) mmol/L Anion Gap (12-20) BUN (9-16) mg/dL Creatinine (0.5-1.4) mg/dL Estim Creat Clear Calc Estimated GFR POC Glucose 251 H (60-115) mg/dL Random Glucose (60-115) mg/dL Calcium (8.4-10.2) mg/dL Magnesium (1.6-2.6) mg/dL Total Bilirubin (0.0-1.0) mg/dL AST (5-37) U/L ALT (0-40) U/L Alkaline Phosphatase (39-117) U/L Total Protein (6.5-8.0) g/dL Albumin (3.5-5.0) g/dL Urine Color Urine Appearance Urine pH (5.0-9.0) Ur Specific [place] (1.005-1.025) Urine Protein (Neg-Trace) mg/dL Urine Glucose (UA) (Negative) mg/dL Urine Ketones (Negative) mg/dL Urine Blood (Negative) Urine Nitrite (Negative) Ur Leukocyte Esterase (Negative) Urine RBC (0-2) /HPF Urine WBC (0-5) /HPF Ur Squamous Epith Cells (0-2) /HPF Urine Bacteria (None Seen) Hyaline Casts (0-2) /LPF Stool Occult Blood NEGATIVE (NEGATIVE) Acetone, Qual (Negative) Chlam trachomat DNA PCR (Not Detect.) Influenza Type A (PCR) NEGATIVE (Negative) Influenza Type B (PCR) NEGATIVE (Negative) N.gonorrhoeae DNA (PCR) (Not Detect.) RSV RNA Qual (PCR) NEGATIVE (Negative) SARS-CoV-2 RNA (RT-PCR) NEGATIVE (Negative) 03/24/22 03/24/22 Range/Units 21:28 21:28 WBC (4.8-10.8) X10*3/uL RBC (4.60-5.80) X10*6/uL Hgb (14.0-18.0) g/dl Hct (42.0-52.0) % MCV (80.0-98.0) fL MCH (27.0-33.0) pg MCHC (31.0-36.0) g/dl RDW (11.0-16.0) % Plt Count (160-400) X10*3/uL MPV (9.4-12.4) fL Immature Gran % (Auto) (0.0-0.4) % Neut % (Auto) (45-73) % Lymph % (Auto) (20-40) % [place] % (Auto) (2-11) % Eos % (Auto) (0-4) % Baso % (Auto) (0-2) % Lymph # (Auto) (1.2-4.9) X10*3/uL [place] # (Auto) (0.1-1.2) X10*3/uL Eos # (Auto) (0.0-0.4) X10*3/uL Baso # (Auto) (0.0-0.2) X10*3/uL Abs Immat Gran (auto) (0.00-0.03) X10*3/uL Absolute Neuts (auto) (2.0-8.3) x10*3/uL Absolute Nucleated RBC (0.0-0.012) X10*3/uL Nucleated RBC % (auto) (0.0-0.2) /100WBC PT (10.0-13.1) SEC INR (0.9-1.1) Sodium (135-145) mmol/L Potassium (3.3-5.1) mmol/L Chloride (96-108) mmol/L Carbon Dioxide (22-29) mmol/L Anion Gap (12-20) BUN (9-16) mg/dL Creatinine (0.5-1.4) mg/dL Estim Creat Clear Calc Estimated GFR POC Glucose (60-115) mg/dL Random Glucose (60-115) mg/dL Calcium (8.4-10.2) mg/dL Magnesium (1.6-2.6) mg/dL Total Bilirubin (0.0-1.0) mg/dL AST (5-37) U/L ALT (0-40) U/L Alkaline Phosphatase (39-117) U/L Total Protein (6.5-8.0) g/dL Albumin (3.5-5.0) g/dL Urine Color Yellow Urine Appearance Clear Urine pH 6.5 (5.0-9.0) Ur Specific [place] 1.020 (1.005-1.025) Urine Protein Negative (Neg-Trace) mg/dL Urine Glucose (UA) >=1000 H (Negative) mg/dL Urine Ketones Negative (Negative) mg/dL Urine Blood Negative (Negative) Urine Nitrite Negative (Negative) Ur Leukocyte Esterase Negative (Negative) Urine RBC 0-2 (0-2) /HPF Urine WBC 0-5 (0-5) /HPF Ur Squamous Epith Cells 0-2 (0-2) /HPF Urine Bacteria None Seen (None Seen) Hyaline Casts 0-2 (0-2) /LPF Stool Occult Blood (NEGATIVE) Acetone, Qual (Negative) Chlam trachomat DNA PCR NOT DETECTED (Not Detect.) Influenza Type A (PCR) (Negative) Influenza Type B (PCR) (Negative) N.gonorrhoeae DNA (PCR) NOT DETECTED (Not Detect.) RSV RNA Qual (PCR) (Negative) SARS-CoV-2 RNA (RT-PCR) (Negative) <HALEIGH Vivas - Last Filed: 03/25/22 16:39> Independent Interpretation I performed an independent interpretation of an: Ultrasound and CT Scan <HALEIGH Vivas Last Filed: 03/25/22 16:39> Radiology Impression Discussion of test interpretation with radiology: I have reviewed the radiologist's reading. <HALEIGH Vivas Last Filed: 03/25/22 16:39> Prescription Management I considered prescription management with: Other (none) <HALEIGH Vivas Last Filed: 03/25/22 16:39> Discharge Plan Discharge Clinical Impression: Diabetes, Rectal bleed, Pain in the groin, Muscle strain <HALEIGH Bashir Last Filed: 03/24/22 15:54> Patient Disposition: Home, Self-Care <HALEIGH Bashir Last Filed: 03/24/22 15:54> Instructions: Rectal Bleeding (ED), Muscle Strain (ED), Hydrocele (ED), Diabetic Hyperglycemia (ED), Groin Pain (ED) <HLAEIGH Bashir Last Filed: 03/24/22 15:54> Additional Instructions: [place] ecograf?a escrotal result? negativa para torsi?n o epididimitis. Mack positivo para hidroceles. La tomograf?a computarizada abdominal result? normal. La orina sali? negativa para infecci?n. [place]ard glucosa mejor? con los l?quidos. Recomendar cambios en sheppard dieta. Lo m?s probable es que se haya torcido la harriet derecha debido a que levant? objetos pesados ??en el trabajo. Por favor, sakina un seguimiento con el proveedor de atenci?n primaria. Regrese al servicio de urgencias inmediatamente si tiene n?useas, v?mitos, dolor abdominal, dolor testicular, masa en la harriet, lesiones en el pene, fiebre, escalofr?os, n?useas, v?mitos, sangrado rectal profuso, v?mitos con micaela, dolor abdominal o cualquier otro s?ntoma preocupante. <HALEIGH Bashir - Last Filed: 03/24/22 15:54> Prescriptions: New naproxen 500 mg tablet 500 mg PO BID PRN (Reason: pain) 7 Days Qty: 14 0RF No Action prednisone 20 mg tablet 20 mg PO BID 2 Days Qty: 3 0RF Rx Instructions: Take 1 tab AM of Day Before CT scan, 1 tab the PM of Day Before CT scan, 1 tab the AM of the CT scan ( 2 hr prior) famotidine [Pepcid] 20 mg tablet 20 mg PO BID 2 Days Qty: 3 0RF Rx Instructions: Take 1 tab AM of Day Before CT scan, 1 tab the PM of Day Before CT scan, 1 tab the AM of the CT scan ( 2 hr prior) diphenhydramine HCl [Benadryl] 25 mg capsule 25 mg PO BID 2 Days Qty: 3 0RF Rx Instructions: Take 1 tab AM of Day Before CT scan, 1 tab the PM of Day Before CT scan, 1 tab the AM of the CT scan ( 2 hr prior) aspirin 81 mg capsule 81 mg PO DAILY Qty: 30 0RF metformin 500 mg tablet extended release 24 hr 1,000 mg PO BID lisinopril 20 mg tablet 20 mg PO DAILY <HALEIGH Bashir - Last Filed: 03/24/22 15:54> Stand Alone Forms: Work/School Release <HALEIGH Bashir - Last Filed: 03/24/22 15:54> Interventions: ED Discharge Assessment Last Done: 03/24/22 22:19 <HALEIGH Bashir - Last Filed: 03/24/22 15:54> Discharge Date/Time: 03/24/22 22:20 <HALEIGH Bashir - Last Filed: 03/24/22 15:54> Print Language: Bahamian <HALEIGH Bashir - Last Filed: 03/24/22 15:54>
[2022-03-24 16:46] LABS: MANUAL DIFF FLAG NO
[2022-03-24 16:47] LABS: Basophils Absolute Auto 0.1 X10*3/uL (0.0-0.2); Basophils Percent Auto 0.6 % (0-2); Eosinophils Absolute Auto 0.2 X10*3/uL (0.0-0.4); Eosinophils Percent Auto 2.1 % (0-4); Hematocrit 41.9 % (42.0-52.0); Hemoglobin 14.5 g/dl (14.0-18.0); Imm Gran Abs Auto 0.02 X10*3/uL (0.00-0.03); Imm Gran Pct Auto 0.2 % (0.0-0.4); Lymphocytes Absolute Auto 2.6 X10*3/uL (1.2-4.9); Lymphocytes Percent Auto 31.2 % (20-40); Mean Corpuscular HGB Conc 34.6 g/dl (31.0-36.0); Mean Corpuscular Hemoglobin 30.9 pg (27.0-33.0); Mean Corpuscular Volume 89.1 fL (80.0-98.0); Monocytes Absolute Auto 0.7 X10*3/uL (0.1-1.2); Monocytes Percent Auto 8.5 % (2-11); Neutrophils Absolute Auto 4.7 x10*3/uL (2.0-8.3); Neutrophils Percent Auto 57.4 % (45-73); Platelet Count 225 X10*3/uL (160-400); Red Cell Distribution Width 12.1 % (11.0-16.0); White Blood Count 8.3 X10*3/uL (4.8-10.8)
[2022-03-24 16:53] LABS: Prothrombin Time 11.4 SEC (10.0-13.1)
[2022-03-24 17:05] LABS: Alanine Aminotransferase 19 U/L (0-40); Albumin Level 4.2 g/dL (3.5-5.0); Alkaline Phosphatase 149 U/L (39-117); Anion Gap 13 (12-20); Aspartate Amino Transferase 13 U/L (5-37); Bilirubin Total 0.4 mg/dL (0.0-1.0); Blood Urea Nitrogen 12 mg/dL (9-16); Calcium 9.2 mg/dL (8.4-10.2); Carbon Dioxide 25 mmol/L (22-29); Chloride 101 mmol/L (96-108); Estimated Glomerular Filt Rate > 60; Glucose Random 486 mg/dL (60-115); Magnesium 1.9 mg/dL (1.6-2.6); Potassium 4.4 mmol/L (3.3-5.1); Sodium 135 mmol/L (135-145); Total Protein 6.8 g/dL (6.5-8.0)
[2022-03-24 17:24] LABS: Influenza A PCR NEGATIVE (Negative); Influenza B PCR NEGATIVE (Negative); Resp Syncy Virus RNA Qual PCR NEGATIVE (Negative); SARS COV2 PCR INHOUSE NEGATIVE (Negative)
[2022-03-24 17:42] LABS: Acetone, serum QL Negative (Negative)
[2022-03-24] MEDS: 0.9 % Sodium Chloride 1,000 ML 999 ML IV ×2 (18:04→18:05)
[2022-03-24 18:32] LABS: OBS Int Ctl Valid YES; OBS1 NEGATIVE (NEGATIVE)
[2022-03-24 20:00] VITALS: BP 122/65; PULSE 61; RESP 16; TEMP 36.7; O2SAT 98
[2022-03-24 21:21] LABS: Glucose, Whole Blood 251 mg/dL (60-115)
[2022-03-24 21:40] LABS: Appearance Urine Clear; Color Urine Yellow; Glucose Urine UA >=1000 mg/dL (Negative); Leukocyte Esterase Urine Negative (Negative); Nitrite Urine Negative (Negative); PH 6.5 (5.0-9.0); UMIC TRIGGER UACC YES; Urine Blood Negative (Negative); Urine Ketones Negative (Negative); Urine Protein Negative (Neg-Trace)
[2022-03-24 23:29] LABS: Bacteria Urine None Seen (None Seen); Hyaline Casts Urine 0-2 /LPF (0-2); RBC Urine 0-2 /HPF (0-2); Squamous Epithelial Cell Urine 0-2 /HPF (0-2); WBC Urine 0-5 /HPF (0-5)
[2022-03-25 00:16] LABS: CT PCR NOT DETECTED (Not Detect.); NG PCR NOT DETECTED (Not Detect.)
== END 2022-03-24 22:20 | disposition home or self-care (01) ==
PROVIDERS: Physician Assistant; Physician Assistant Medical; Emergency Provider Internal Medicine; PCP Internal Medicine
DX: E11.65 Type 2 diabetes mellitus with hyperglycemia (principal); R10.31 Right lower quadrant pain; K62.5 Hemorrhage of anus and rectum; S39.011A Strain of muscle, fascia and tendon of abdomen, initial encounter; X58.XXXA Exposure to other specified factors, initial encounter; Z79.84 Long term (current) use of oral hypoglycemic drugs; Z79.82 Long term (current) use of aspirin; Z79.899 Other long term (current) drug therapy; Z20.822 Contact with and (suspected) exposure to COVID-19; Z20.828 Contact with and (suspected) exposure to other viral communicable diseases; Y93.9 Activity, unspecified; Y92.9 Unspecified place or not applicable; Y99.9 Unspecified external cause status
CPT/HCPCS: 0241U; 0353U; 74176; 76870; 80053; 81001; 82009; 82272; 82947; 83735; 85025; 85610; 93975; 96360; 96361; 99284

== ENCOUNTER 2023-03-22 09:55 | Outpatient (REF) | payer OTHER, SELFPAY ==
--- NOTE | ~2023-03-22 | XR_ITS ---
EXAMINATION: XR LUMBOSACRAL SPINE WITH OBLIQUES CLINICAL INFORMATION: Low back pain COMPARISON: Lumbar spine x-ray on 04/19/2014 TECHNIQUE: AP, both oblique, and lateral views of the lumbar spine. Lateral view of the lumbosacral junction. FINDINGS: The visualized lumbar vertebrae are intact with normal alignment. Intervertebral disc spaces are normal. Bilateral oblique x-rays of lumbar spine show intact articular processes with no evidence of spondylolysis. XR/XR lumbar spine 4V min IMPRESSION: 1. Unchanged Normal lumbosacral spine x-ray. 2. No fracture or dislocation of lumbar spine is seen.
--- NOTE | ~2023-03-22 | XR_ITS ---
EXAMINATION: XR HIP, RIGHT CLINICAL INFORMATION: Right hip pain for 6 months COMPARISON: None available. TECHNIQUE: Two views of the right hip. FINDINGS: BONES: Bony structures are intact. There is no focal bone destruction or periosteal reaction seen. JOINTS: Alignment of hip joint is normal. SOFT TISSUE: Soft tissue is normal. No radiopaque foreign body or abnormal air collection is seen. XR/XR hip RT min 2V IMPRESSION: Normal x-ray of right hip. No fracture or dislocation or signs of avascular necrosis are seen.
== END 2023-03-22 09:56 | disposition home or self-care (01) ==
LOC: HO.HHCX 09:55
PROVIDERS: Visit Provider Internal Medicine
DX: M25.551 Pain in right hip (principal); M54.50 Low back pain, unspecified; M79.604 Pain in right leg
CPT/HCPCS: 72110; 73502

== ENCOUNTER 2023-04-05 10:27 | Outpatient (REF) | payer OTHER, SELFPAY ==
--- NOTE | ~2023-04-05 | XR_ITS ---
EXAMINATION: XR CHEST CLINICAL INFORMATION: Cough x3 months. COMPARISON: 11/01/2021 TECHNIQUE: 2 views of the chest were obtained. FINDINGS: The lungs are well expanded. No focal consolidation. No pleural effusion. Cardiac silhouette is within normal limits. XR/XR chest 2V IMPRESSION: No acute abnormality.
[2023-04-05 11:50] LABS: Alanine Aminotransferase 19 U/L (0-40); Albumin Level 4.5 g/dL (3.5-5.0); Alkaline Phosphatase 137 U/L (39-117); Anion Gap 14 (12-20); Aspartate Amino Transferase 14 U/L (5-37); Bilirubin Direct 0.2 mg/dL (0.0-0.5); Bilirubin Total 0.5 mg/dL (0.0-1.0); Blood Urea Nitrogen 14 mg/dL (9-16); Calcium 9.8 mg/dL (8.4-10.2); Carbon Dioxide 28 mmol/L (22-29); Chloride 103 mmol/L (96-108); Cholesterol 218 mg/dL (<200); Estimated Glomerular Filt Rate > 60; Glucose Random 264 mg/dL (60-115); HDL Cholesterol 45 mg/dL (>40); LDL Cholesterol Calculated 146 mg/dL (<100); Potassium 4.2 mmol/L (3.3-5.1); Sodium 141 mmol/L (135-145); Total Protein 7.9 g/dL (6.5-8.0); Triglycerides 139 mg/dL (<150)
[2023-04-05 12:56] LABS: Reflex LDLD? No
== END 2023-04-05 10:28 | disposition home or self-care (01) ==
LOC: HO.HHCL 10:27
PROVIDERS: Visit Provider Internal Medicine
DX: R05.2 Subacute cough (principal); E78.00 Pure hypercholesterolemia, unspecified; I10 Essential (primary) hypertension
CPT/HCPCS: 36415; 71046; 80048; 80061; 80076

== ENCOUNTER 2023-04-10 22:41 | Emergency (ER) | payer OTHER, SELFPAY ==
--- NOTE | ~2023-04-10 | XR_ITS ---
EXAMINATION: XR CHEST CLINICAL INFORMATION: Cough COMPARISON: 04/05/2023 TECHNIQUE: 2 views of the chest were obtained. FINDINGS: The lungs are clear with no focal consolidation. No evidence of pneumothorax, pulmonary edema, or pleural effusions. The cardiomediastinal silhouette is unremarkable. No acute osseous findings. XR/XR chest 2V IMPRESSION: No acute cardiopulmonary findings.
[2023-04-10 23:05] VITALS: BMI 30.1
[2023-04-10 23:08] VITALS: BP 155/96; PULSE 79; RESP 20; TEMP 36.6; O2SAT 98
[2023-04-10 23:57] LABS: IDNOW Serial# 08D9AD1C
[2023-04-10 23:58] LABS: Strep A Nucleic Acid Negative (Negative)
--- NOTE | 2023-04-11 00:03 | ED.GENADULT ---
HPI - General Adult General Chief complaint: Upper Respiratory Symptoms Stated complaint: cough, sore throat, fever, diff breathing Time Seen by Provider: 04/10/23 23:12 Source: patient and family Mode of arrival: ambulatory History of Present Illness HPI narrative: 42-year-old male who reports persistent cough for 3 weeks as well as sore throat and has developed some discomfort with swallowing but has continued to be able to eat and drink. Patient reports that he saw his primary care doctor last week, had lab work done and according to the triage note lab work was all normal . Patient also reports that he had COVID last year followed by the flu and has not felt right since . Patient is using Zarbee's. natural cough medication for cough control. Related Data Home Medications Medication Instructions Recorded Confirmed lisinopril 20 mg tablet 20 mg PO DAILY 11/02/21 11/02/21 metformin 500 mg tablet,extended 1,000 mg PO BID 11/02/21 11/02/21 release 24 hr Previous Rx's Medication Instructions Recorded aspirin 81 mg capsule 81 mg PO DAILY #30 caps 11/01/21 diphenhydramine HCl 25 mg capsule 25 mg PO BID sleep 2 days #3 caps 12/21/21 (Benadryl) famotidine 20 mg tablet (Pepcid) 20 mg PO BID 2 days #3 tabs 12/21/21 prednisone 20 mg tablet 20 mg PO BID 2 days #3 tabs 12/21/21 naproxen 500 mg tablet 500 mg PO BID PRN pain 7 days #14 03/24/22 tabs Allergies Allergy/AdvReac Type Severity Reaction Status Date / Time Iodinated Contrast Media Allergy Mild swelling Verified 11/02/21 13:00 [IV CONTRAST] of eyelids and hives 45 mins after Review of Systems Review of Systems: Pertinent positives and negatives as stated in HPI [facility] Past Medical History Source: nursing notes reviewed Medical History Hypertension Diabetes type 2, controlled Hyperlipidemia Surgical History History of appendectomy Family History Family History Father No problems noted. Mother No problems noted. Social History Social History Patient Tobacco Use Status: Never used Tobacco Physical Exam ED Vital Signs: Vital Signs - 24 hr 04/10/23 23:08 Temperature 97.9 F Pulse Rate 79 Respiratory Rate 20 Blood Pressure 155/96 H Pulse Oximetry 98 Oxygen Delivery Method Room Air BMI result Body Mass Index 30.1 VITAL SIGNS: Reviewed. GENERAL: Well developed, well nourished, in no acute distress. HEAD: Normocephalic/atraumatic EYES: PERRLA, EOMI EARS: Ext canals without abnormality, TMs non-bulging and non-erythematous NOSE: Nares patent bilateral OROPHARYNX: no oral lesions noted, posterior pharynx clear and non-erythematous without noted tonsillar enlargement/erythema/exudates NECK: Supple, no adenopathy LUNGS: Normal breath sounds. No adventitious sounds or accessory muscle use. SpO2<98> CARDIOVASCULAR: Regular rate and rhythm without noted murmurs ABDOMEN: Soft, non-tender, non-distended with bowel sounds. MUSCULOSKELETAL: No tenderness, deformities, or effusions noted on gross inspection. EXTREMITIES: No cyanosis, clubbing or edema. SKIN: Inspection of the skin reveals no rashes NEUROLOGIC: Alert and oriented x 4. Strength and sensation to light touch were grossly intact x 4. Medications Administered Discontinued Medications Generic Name Dose Route Start Last Admin Trade Name Freq PRN Reason Stop Dose Admin Benzonatate 200 mg 04/11/23 00:09 04/11/23 00:22 Benzonatate 100 Mg Capsule PO 04/11/23 00:10 200 mg ONCE ONE Administration Medical Decision Making Medical Decision Making MDM Narrative: 42-year-old male with history and clinical presentation, DDX: Chronic cough that is likely contributing to sore throat and upper airway irritation, there is no significant adenopathy appreciated, patient may be experiencing host viral persistent cough, he denies any history asthma or COPD but does have known diabetes. I reviewed all investigations and rapid strep is negative/viral testing is also negative for COVID-19/influenza/RSV and chest x-ray does not demonstrate any infiltrate/venous congestion otherwise my interpretation is in agreement with radiology's impression. Patient is not febrile here, he did receive 200 mg of Tessalon for his cough and was strongly encouraged to explore tghe-iuh-[id number] cough medications for improved symptom relief. Lia addition, patient was instructed to follow-up with his primary care doctor for further investigation. Differential Diagnosis Differential Diagnoses: The differential diagnosis associated with the presentation includes Please see the discussion above Admission/Observation Consideration of admission/observation: Escalation of care including admission/observation considered Please see the discussion above Lab Data MDM Lab Attestation statement: I reviewed the patient's lab results. Please see the discussion above Labs: Lab Results 04/10/23 Range/Units 23:31 Influenza Type A (PCR) NEGATIVE (Negative) Influenza Type B (PCR) NEGATIVE (Negative) RSV RNA Qual (PCR) NEGATIVE (Negative) SARS-CoV-2 RNA (RT-PCR) NEGATIVE (Negative) S. pyogenes GrpA ARELY Negative (Negative) Radiology Impression Discussion of test interpretation with radiology: I have reviewed the radiologist's reading. Radiologist Impression: Please see discussion above External Record Review External record reviewed: Outpatient record, Prior outpatient labs and Prior outpatient radiology Chronic Conditions Patient?s care impacted by: Diabetes Critical Care Time Critical Care Time Critical Care Time: Yes Total Critical Care Time: 45 Attestation: I personally attest to this time spent taking care of the patient. Discharge Plan Discharge Clinical Impression: Chronic cough, Pharyngitis Patient Disposition: Home, Self-Care Instructions: Chronic Cough (ED), Pharyngitis (ED) Additional Instructions: 1. Reanudar todos los medicamentos caseros seg?n lo recetado. 2. Contin?e usando Tylenol/ibuprofeno para controlar el dolor y recomiendo encarecidamente usar medicamentos para la tos de venta konstantin, shahnaz Robitussin o NyQuil, para mejorar el alivio de los s?ntomas. 3. Ryder un seguimiento con rose m?dico de atenci?n primaria llamando al consultorio por la ma?mira y programando santos mayra para santos reevaluaci?n adicional del manejo e investigaci?n del paciente ambulatorio. Rose examen de hoy fue negativo para cualquier hallazgo damari, carito no dude en regresar a la candace de emergencias si experimenta alg?n empeoramiento. 1. Resume all home medications as prescribed. 2. Continue to use Tylenol/ibuprofen for pain control and I strongly recommend using trhe-uuj-edrmefu cough medications such as Robitussin or NyQuil for improved symptom relief. 3. Please follow-up with your primary care doctor by calling the office in the morning and setting up an appointment for re-evaluation further outpatient management and investigation. Your workup today was negative for any acute findings, but please do not hesitate to return to the emergency room should you experience any worsening. Prescriptions: No Action prednisone 20 mg tablet 20 mg PO BID 2 Days Qty: 3 0RF Rx Instructions: Take 1 tab AM of Day Before CT scan, 1 tab the PM of Day Before CT scan, 1 tab the AM of the CT scan ( 2 hr prior) famotidine [Pepcid] 20 mg tablet 20 mg PO BID 2 Days Qty: 3 0RF Rx Instructions: Take 1 tab AM of Day Before CT scan, 1 tab the PM of Day Before CT scan, 1 tab the AM of the CT scan ( 2 hr prior) diphenhydramine HCl [Benadryl] 25 mg capsule 25 mg PO BID 2 Days Qty: 3 0RF Rx Instructions: Take 1 tab AM of Day Before CT scan, 1 tab the PM of Day Before CT scan, 1 tab the AM of the CT scan ( 2 hr prior) aspirin 81 mg capsule 81 mg PO DAILY Qty: 30 0RF naproxen 500 mg tablet 500 mg PO BID PRN (Reason: pain) 7 Days Qty: 14 0RF metformin 500 mg tablet extended release 24 hr 1,000 mg PO BID lisinopril 20 mg tablet 20 mg PO DAILY Referrals: Houston Castillo MD [Primary Care Provider] - Print Language: Macedonian
[2023-04-11 00:15] LABS: Influenza A PCR NEGATIVE (Negative); Influenza B PCR NEGATIVE (Negative); Resp Syncy Virus RNA Qual PCR NEGATIVE (Negative); SARS COV2 PCR INHOUSE NEGATIVE (Negative)
[2023-04-11] MEDS: Benzonatate 100 MG CAPSULE 200 MG PO (00:22)
== END 2023-04-11 01:12 | disposition home or self-care (01) ==
LOC: HO.ED 04-11 00:56
PROVIDERS: Emergency Provider Student in an Organized Health Care Education/Training Program; PCP Internal Medicine
DX: J02.9 Acute pharyngitis, unspecified (principal); R05.9 Cough, unspecified; R50.9 Fever, unspecified; R06.02 Shortness of breath; Z11.52 Encounter for screening for COVID-19; Z20.822 Contact with and (suspected) exposure to COVID-19
CPT/HCPCS: 0241U; 71046; 87651; 99283; 99284

== ENCOUNTER 2023-06-10 09:36 | Outpatient (AMB) | payer OTHER, SELFPAY ==
--- NOTE | 2023-06-10 09:54 | MHC.OFFVIS ---
Vital Signs 06/10/23 10:07 Height 5 ft 3 in Weight 168 lb 4 oz BMI 29.8 BP 134/80 Blood Pressure Location Lt brachial Position Sitting Pulse 73 Pulse Source Pulse Oximeter Pulse Oximetry (%) 96 Oxygen Delivery Method Room Air Intake Visit Reasons: E-STEREOPTICIAN: Sleep disturbances - CONF w/address Intake Note: Patient presents for sleep disturbances. Snores a lot to the point it wakes him up 4-5 times a night. During the week wakes up with headache up to 3x. Often wakes up gasping for air. Allergies Iodinated Contrast Media [IV CONTRAST] Allergy (Mild, Verified 06/10/23 10:02) swelling of eyelids and hives 45 mins after HPI Comments Details: 42 y/o male patient with HTN and T2DM, presents for new in-person visit for sleep consultation. pediatric clinical dieticianYu, ID # [id number] utilized for this visit. Pt reports loud snoring, gasping arousals, non refreshing sleep with daytime sleepiness. He wakes up 3-4 times at night, having nocturia. He can have morning headache. Sleep questionnaire: Have you ever been diagnosed with a sleep disorder? No. Have you ever had a sleep study in the past? No. Have you ever been treated for a sleep disorder? No. Do you take medications for a sleep disorder? No. Do you snore? Yes. Do you wake up gasping at night? Yes. Do you have episodes of apneas? Yes. If yes, are they witnessed? Yes. Do you have episodes of nocturnal chest pain or dyspnea? No. Do you have difficulty initiating sleep? No. Do you have difficulty maintaining sleep? Yes, wakes up 3-4 times. Do you wake up tired? Yes. Do you have headaches upon awakening? Yes. Do you wake up with dry mouth or throat? Yes. Do you have GERD? No. Do you have nocturia? Yes. Do you have nocturnal leg cramps? No. Do you have symptoms of restless legs? No. Do you act out your dreams? No. Sleep hygiene questionnaire: What is your usual sleep routine? Usual bedtime is at 10 pm; Usual wake up time is at 6:30 am. Do you take naps? No. Is your sleep environment cool, dark, and quiet? Yes. Do you exercise? Yes. Do you take caffeine or other stimulants? Yes. Do you use electronics in bed? No. What is your work schedule? 7 am to 6 pm. Hypersomnolence questionnaire: Do you have daytime tiredness or fatigue? Yes. Do you easily fall asleep when inactive? Yes. Have you ever had episodes of sudden weakness? No. Have you ever had episodes of sudden weakness associated with strong emotions? No. PFSH Medical History Hypertension Diabetes type 2, controlled Hyperlipidemia Surgical History History of appendectomy Family History Father No problems noted. Mother No problems noted. Social History (Updated 06/10/23 @ 10:10 by Lorri Scott CMA) Household Members: Spouse and Children Housing: House Alcohol intake: former Patient Tobacco Use Status: Never used Tobacco Review of Systems Const All systems reviewed & are unremarkable except as noted in HPI and below Physical Exam Vital Signs: Last Vital Signs Pulse 73 06/10/23 10:07 BP 134/80 06/10/23 10:07 Pulse Ox 96 06/10/23 10:07 Oxygen Delivery Method Room Air 06/10/23 10:07 BMI result Body Mass Index 29.8 Const General: cooperative and tired appearing Nutritional Appearance: overweight Orientation/consciousness: patient oriented x3 Neck Neck: Yes full ROM and Yes supple Resp Effort & Inspection: normal respiratory effort and able to speak in complete sentences Neuro General: patient oriented x3 Cranial nerves: Yes CN's II-XII intact bilaterally Cognition (Neuro): normal cognition Gait exam (Neuro): Normal gait present Motor exam (neuro): 5/5 motor strength present throughout Psych Appearance: grossly normal Mental Status: mental status grossly normal Speech and movement: Normal speech and movement present Affect: normal affect Attitude: cooperative Assessment & Plan Assessment & Plan (1) Daytime sleepiness: Code(s): R40.0 - Somnolence Category: Medical (2) Loud snoring: Code(s): R06.83 - Snoring Category: Medical Plan Pt is advised to undergo home sleep study to assess for sleep apnea. Will f/u with pt after study to discuss results and appropriate treatment options. Sleep hygiene education provided. Pt to call with any worsening concerns or questions. Orders: Orders RT home sleep study Today R06.83 - Snoring, R40.0 - Somnolence Coding Level of Care Code New Pt Level 3 (82854) Diagnoses Daytime sleepiness R40.0 Loud snoring R06.83
[2023-06-10 10:07] VITALS: BP 134/80; PULSE 73; O2SAT 96; BMI 29.8
== END 2023-06-10 10:32 | disposition home or self-care (01) ==
PROVIDERS: Absent Provider Nurse Practitioner Family; PCP Internal Medicine; Visit Provider Nurse Practitioner Family
DX: R40.0 Somnolence (principal); R06.83 Snoring
CPT/HCPCS: 99203

== ENCOUNTER → 2023-06-10 09:36 | Outpatient (BNVA) | payer OTHER, SELFPAY | PROVIDERS: Absent Provider Nurse Practitioner Family; PCP Internal Medicine; Visit Provider Nurse Practitioner Family | DX: R40.0 Somnolence (principal); R06.83 Snoring; I10 Essential (primary) hypertension; R35.1 Nocturia | CPT/HCPCS: 99202 ==

== ENCOUNTER → 2023-07-22 12:47 | Outpatient (REF) | payer OTHER, SELFPAY | LOC: HO.SL 12:47 | PROVIDERS: PCP Internal Medicine; Visit Provider Nurse Practitioner Family | DX: Z13.89 Encounter for screening for other disorder (principal) ==

== ENCOUNTER 2024-01-29 15:44 | Emergency (ER) | payer OTHER, SELFPAY ==
--- NOTE | ~2024-01-29 | CT_ITS ---
EXAMINATION: CT HEAD WITHOUT CONTRAST CLINICAL INFORMATION: Right-sided facial pain and weakness. COMPARISON: None available. TECHNIQUE: Contiguous axial imaging was performed from the skull base to vertex without intravenous administration of contrast. This CT examination was performed using dose optimization techniques as appropriate, variously including the following: *Automated exposure control. *Adjustment of mA and/or kV according to patient size (this includes techniques or standardized protocols for targeted exams where dose is matched to indication/reason for exam; i.e. extremities or head). *Use of iterative reconstruction technique. DLP: 778 mGy-cm FINDINGS: There is no evidence of acute intracranial hemorrhage or edematous territorial infarction. Dietrich-white matter differentiation is preserved. There is no abnormal attenuation within the brain parenchyma. The ventricles are normal in morphology and size. No evidence for obstructive hydrocephalus. No abnormal mass effect or midline shift. No extra-axial fluid collections. No acute soft tissue or osseous abnormalities. Mild mucosal thickening of the paranasal sinuses. The right-sided mastoid air cells are underdeveloped. Otherwise, the mastoid air cells and middle ear cavities are clear. CT/CT head/brain wo IV con IMPRESSION: No evidence of acute intracranial hemorrhage or edematous territorial infarction. Electronically signed by: Adelso Lorenz DO 01/29/2024 05:45 PM SARAH
--- NOTE | ~2024-01-29 | CT_ITS ---
EXAMINATION: CT CERVICAL SPINE WITHOUT CONTRAST CLINICAL INFORMATION: Neck pain, arm pain. COMPARISON: None available. TECHNIQUE: Axial imaging. Sagittal and coronal reconstructions. This CT examination was performed using dose optimization techniques as appropriate, variously including the following: *Automated exposure control *Adjustment of mA and/or kV according to patient size (this includes techniques or standardized protocols for targeted exams where dose is matched to indication/reason for exam; i.e. extremities or head) *Use of iterative reconstruction technique DLP: 425 mGy-cm FINDINGS: Craniocervical and atlantoaxial articulation is maintained. Vertebral body sagittal alignment is maintained. Predens space is maintained. Vertebral body heights are maintained. The posterior arch of C1 is not fused, with sclerotic margins, suggesting a chronic/congenital process. No evidence of acute fracture or traumatic subluxation. The disc spaces are maintained. Mild endplate spurring at a few levels. The bony central canal is grossly maintained. No significant prevertebral soft tissue swelling. Esophagus is nondistended. Lung apices are clear. CT/CT cervical spine wo IV con IMPRESSION: No CT evidence of acute cervical spine fracture or traumatic malalignment. Minimal cervical spondylosis. Etiology of the patient's symptoms has not been determined by CT. Further evaluation with follow-up MRI as clinically indicated. Fleischner guidelines were followed. Electronically signed by: Raul Zamudio MD 01/29/2024 08:11 PM [facility]ALLACE
[2024-01-29 15:47] VITALS: BP 151/87; PULSE 78; RESP 16; TEMP 36.3; O2SAT 98; BMI 27.4
--- NOTE | 2024-01-29 15:55 | ED_ITS ---
HPI - General Adult General Chief complaint: Weakness Stated complaint: right arm pain ? 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 Since then top of hand has been numb and weak. He is R hand dominant. No prior trauma, no neck pain states the pain shoots up into his neck. He denies fevers/rash. He waited 2 weeks to see if it got better and it did not and the pain does not respond to tylenol. He has not seen any providers for it. MD complaint: R hand numbness/weakness Onset (ago): week(s) (2) Location: right and upper extremity Radiation: extremity Severity: moderate Quality: aching and other (tingling) Pain Consistency: constant Relieving factors: none Exacerbating factors: movement Associated symptoms: denies other symptoms Treatments prior to arrival: none Related Data Home Medications ?Medication ?Instructions ?Recorded ?Confirmed lisinopril 20 mg tablet 20 mg PO DAILY 11/02/21 11/02/21 metformin 500 mg tablet,extended 1,000 mg PO BID 11/02/21 11/02/21 release 24 hr Previous Rx's ?Medication ?Instructions ?Recorded aspirin 81 mg capsule 81 mg PO DAILY #30 caps 11/01/21 cyclobenzaprine 10 mg tablet 10 mg PO TID PRN muscle spasm #20 01/29/24 tabs Allergies Allergy/AdvReac Type Severity Reaction Status Date / Time Iodinated Contrast Media Allergy Mild swelling Verified 01/29/24 15:55 [IV CONTRAST] of eyelids and hives 45 mins after Review of Systems 2 Review of Systems: Constitutional : No Fever, No Chills ENT/Mouth : No Ear Pain, No Hoarseness, No sore throat Eyes: No Eye Pain, No Swelling, No Redness, No Foreign Body Cardiovascular : No Chest Pain, No SOB Respiratory : No Cough, No Dyspnea Gastrointestinal : No Nausea, No Vomiting, No Diarrhea, No abdominal Pain Genitourinary : No Dysuria, No Hematuria Musculoskeletal : positive joint pain, No Myalgias, No Joint Swelling Skin : No Skin lacerations, No rash Neuro : No Weakness, pos Numbness, No Loss of Consciousness, No Dizziness, No Headache All other systems reviewed and are negative FOR[facility] Past Medical History Attestation statement: The following information was validated with the patient. Source: old records reviewed Medical History Hypertension Diabetes type 2, controlled Hyperlipidemia Surgical History History of appendectomy Family History Family History Father No problems noted. Mother No problems noted. Social History Social History Household Members: Spouse and Children Housing: House Alcohol intake: former Patient Tobacco Use Status: Never used Tobacco Advance Directives: No Advance Directives Information Provided: No Do you have a plan to hurt others: No Plan Physical Exam ED Vital Signs: Vital Signs - 24 hr 01/29/24 15:47 01/29/24 19:03 Temperature 97.4 F 98.0 F Pulse Rate 78 76 Respiratory Rate 16 18 Blood Pressure 151/87 H 128/72 Pulse Oximetry 98 98 Oxygen Delivery Method Room Air Room Air BMI result Body Mass Index 27.4 Appearance: Alert. Oriented X3. No acute distress. Eyes: Pupils equal, round and reactive to light. ENT: Pharynx normal. Neck: Normal inspection. Neck supple. neg spurlings reports some pain in R trapezius CVS: Normal heart rate and rhythm. Pulses normal. Respiratory: No respiratory distress. Breath sounds normal. Abdomen: Soft and nontender. Skin: Skin warm and dry. Normal skin color. Normal skin turgor. Extremities: No lower extremity edema. No calf ttp Neuro: Oriented X 3. R arm 2+ radial pulse, warm to touch, he appears to have wrist drop but then can straighten it out it is intermittent. he reports numbness just on dorsum of all fingers and hand. I see no rash, swelling. He can make a bicep 5/5 but then cannot keep arm raised without pain. Course Course Course Narrative: RME, this is a rapid medical exam performed by Rick Fallon please refer to primary provider for complete H&P- 43-year-old male with past medical history significant for hypertension, diabetes presents for evaluation of right arm pain and numbness and weakness. Patient reports that 2 weeks ago he had a painful sensation in his right middle finger. He felt as though he was bit by something due to the pain but he does not believe he was actually bit by anything. He reports pain traveling up his right arm and now he has pain to his right shoulder and had as well as weakness in his right arm and right leg. He was sent for urgent care. Plan for labs and a CT scan of the brain. On exam the patient's cable former strength is slightly weaker on the right compared to the left. Medical Decision Making Medical Decision Making [facility] Narrative: 43 yo male with PMH of HTN, DM2, HLD here with c/o R hand weakness, numbness to dorsum of hand x 2 weeks without trauma to the neck and neb spurlings - pain started in hand then traveled to wrist he appears to have wrist drop - no other deficits at this time CT head/cspine, labs. He symptoms seem like a peripheral lesion at this time he needs to follow up with PCP and get EMG he is aware. Low susp for mass/stroke given symptoms but stroke is possible though at this time would be futile to admit for further workup. No neck pain to suggest compressive ds or dissection Differential Diagnosis Differential Diagnoses: The differential diagnosis associated with the presentation includes nerve compression, stroke, radicular symptoms Admission/Observation Consideration of admission/observation: Escalation of care including admission/observation considered no acute findings CT scans negative 2 weeks out of onset will need to follow up as outpatient Lab Data [facility] Lab Attestation statement: I reviewed the patient's lab results. 01/29/24 16:00 01/29/24 16:00 Labs: Lab Results 01/29/24 01/29/24 Range/Units 16:00 19:10 WBC 8.8 (4.8-10.8) X10*3/uL RBC 4.81 (4.60-5.80) X10*6/uL Hgb 15.3 (14.0-18.0) g/dl Hct 43.2 (42.0-52.0) % MCV 89.8 (80.0-98.0) fL MCH 31.8 (27.0-33.0) pg MCHC 35.4 (31.0-36.0) g/dl RDW 12.6 (11.0-16.0) % Plt Count 233 (160-400) X10*3/uL MPV 9.7 (9.4-12.4) fL Immature Gran % (Auto) 0.2 (0.0-0.4) % Neut % (Auto) 58.3 (45-73) % Lymph % (Auto) 33.4 (20-40) % [place] % (Auto) 6.5 (2-11) % Eos % (Auto) 1.1 (0-4) % Baso % (Auto) 0.5 (0-2) % Lymph # (Auto) 2.9 (1.2-4.9) X10*3/uL [place] # (Auto) 0.6 (0.1-1.2) X10*3/uL Eos # (Auto) 0.1 (0.0-0.4) X10*3/uL Baso # (Auto) 0.0 (0.0-0.2) X10*3/uL Abs Immat Gran (auto) 0.02 (0.00-0.03) X10*3/uL Absolute Neuts (auto) 5.1 (2.0-8.3) x10*3/uL Absolute Nucleated RBC 0.000 (0.0-0.012) X10*3/uL Nucleated RBC % (auto) 0.0 (0.0-0.2) /100WBC Sodium 136 (135-145) mmol/L Potassium 3.8 (3.3-5.1) mmol/L Chloride 102 (96-108) mmol/L Carbon Dioxide 23 (22-29) mmol/L Anion Gap 15 (12-20) BUN 13 (9-16) mg/dL Creatinine 1.06 (0.5-1.4) mg/dL Estim Creat Clear Calc 81.9 Estimated GFR > 60 Random Glucose 380 H* (60-115) mg/dL Calcium 9.1 D (8.4-10.2) mg/dL Magnesium 2.1 (1.6-2.6) mg/dL Total Bilirubin 0.5 (0.0-1.0) mg/dL AST 20 (5-37) U/L ALT 27 (0-40) U/L Alkaline Phosphatase 105 (39-117) U/L Total Protein 7.5 (6.5-8.0) g/dL Albumin 4.5 (3.5-5.0) g/dL Lipase 35 (8-78) U/L Urine Color Yellow Urine Appearance Clear Urine pH 5.5 (5.0-9.0) Ur Specific [place] >= 1.030 H (1.005-1.025) Urine Protein Negative (Neg-Trace) mg/dL Urine Glucose (UA) >=1000 H (Negative) mg/dL Urine Ketones Negative (Negative) mg/dL Urine Blood Negative (Negative) Urine Nitrite Negative (Negative) Ur Leukocyte Esterase Negative (Negative) Urine RBC 0-2 (0-2) /HPF Urine WBC 0-5 (0-5) /HPF Ur Squamous Epith Cells 0-2 (0-2) /HPF Urine Bacteria None Seen (None Seen) Hyaline Casts 0-2 (0-2) /LPF Independent Interpretation I performed an independent interpretation of an: EKG and CT Scan (normal ) Interpretation: Rate: 72 Rhythm: NSR [place]: normal Normal P waves. Normal NATALY. Normal QRS complex. ST T wave : inverted T waves V4, V5, V6, inverted aVL, I qTC: 420 prior studies: no acute ischemia The study has been interpreted contemporaneously by me. . Radiology Impression Discussion of test interpretation with radiology: I have reviewed the radiologist's reading. External Record Review External record reviewed: Outpatient record Discharge Plan Discharge Clinical Impression: Right hand weakness, Right wrist drop Patient Disposition: Home, Self-Care Instructions: Weakness (ED) Additional Instructions: labs other than elevated glucose are normal EKG was at baseline CT scan of the head and neck at this time do not show the cause of your R hand weakness and numbness. this is 2 weeks out from onset at this time given delayed presention you need to follow up with your doctor for EMG please call your doctor tomorrow Prescriptions: New cyclobenzaprine 10 mg tablet 10 mg PO TID PRN (Reason: muscle spasm) Qty: 20 0RF No Action aspirin 81 mg capsule 81 mg PO DAILY Qty: 30 0RF metformin 500 mg tablet extended release 24 hr 1,000 mg PO BID lisinopril 20 mg tablet 20 mg PO DAILY Print Language: [place]
[2024-01-29 16:04] LABS: MANUAL DIFF FLAG NO
[2024-01-29 16:06] LABS: Basophils Percent Auto 0.5 % (0-2); Eosinophils Absolute Auto 0.1 X10*3/uL (0.0-0.4); Eosinophils Percent Auto 1.1 % (0-4); Hematocrit 43.2 % (42.0-52.0); Hemoglobin 15.3 g/dl (14.0-18.0); Imm Gran Abs Auto 0.02 X10*3/uL (0.00-0.03); Imm Gran Pct Auto 0.2 % (0.0-0.4); Lymphocytes Absolute Auto 2.9 X10*3/uL (1.2-4.9); Lymphocytes Percent Auto 33.4 % (20-40); Mean Corpuscular HGB Conc 35.4 g/dl (31.0-36.0); Mean Corpuscular Hemoglobin 31.8 pg (27.0-33.0); Mean Corpuscular Volume 89.8 fL (80.0-98.0); Mean Platelet Volume 9.7 fL (9.4-12.4); Monocytes Absolute Auto 0.6 X10*3/uL (0.1-1.2); Monocytes Percent Auto 6.5 % (2-11); Neutrophils Absolute Auto 5.1 x10*3/uL (2.0-8.3); Neutrophils Percent Auto 58.3 % (45-73); Platelet Count 233 X10*3/uL (160-400); Red Blood Count 4.81 X10*6/uL (4.60-5.80); Red Cell Distribution Width 12.6 % (11.0-16.0); White Blood Count 8.8 X10*3/uL (4.8-10.8)
[2024-01-29 16:32] LABS: Albumin Level 4.5 g/dL (3.5-5.0); Anion Gap 15 (12-20); Aspartate Amino Transferase 20 U/L (5-37); Bilirubin Total 0.5 mg/dL (0.0-1.0); Blood Urea Nitrogen 13 mg/dL (9-16); Calcium 9.1 mg/dL (8.4-10.2); Carbon Dioxide 23 mmol/L (22-29); Chloride 102 mmol/L (96-108); Creatinine Clr Calc Pharmacy 81.9; Estimated Glomerular Filt Rate > 60; Glucose Random 380 mg/dL (60-115); Lipase 35 U/L (8-78); Magnesium 2.1 mg/dL (1.6-2.6); Potassium 3.8 mmol/L (3.3-5.1); Sodium 136 mmol/L (135-145); Total Protein 7.5 g/dL (6.5-8.0)
[2024-01-29 17:01] LABS: Alanine Aminotransferase 27 U/L (0-40); Alkaline Phosphatase 105 U/L (39-117)
[2024-01-29 19:03] VITALS: BP 128/72; PULSE 76; RESP 18; TEMP 36.7; O2SAT 98
--- NOTE | 2024-01-29 19:14 | ECG_ITS ---
Test Reason : WEAKNESS Blood Pressure : / mmHG Vent. Rate : 072 BPM Atrial Rate : 072 BPM P-R Int : 154 ms QRS Dur : 078 ms QT Int : 384 ms P-R-T Axes : 060 066 137 degrees QTc Int : 420 ms Normal sinus rhythm T wave abnormality, consider lateral ischemia Abnormal ECG When compared with ECG of 01-NOV-2021 20:10, No significant change was found Referred By: Sydney Kimball Electronically Signed By:ANDERSON ZENDEJAS
[2024-01-29 19:30] LABS: Appearance Urine Clear; Color Urine Yellow; Glucose Urine UA >=1000 mg/dL (Negative); Leukocyte Esterase Urine Negative (Negative); Nitrite Urine Negative (Negative); PH 5.5 (5.0-9.0); Specific Gravity - Urine >= 1.030 (1.005-1.025); UMIC TRIGGER UACC YES; Urine Blood Negative (Negative); Urine Ketones Negative (Negative); Urine Protein Negative (Neg-Trace)
[2024-01-29 19:43] LABS: Bacteria Urine None Seen (None Seen); Hyaline Casts Urine 0-2 /LPF (0-2); RBC Urine 0-2 /HPF (0-2); Squamous Epithelial Cell Urine 0-2 /HPF (0-2); WBC Urine 0-5 /HPF (0-5)
[2024-01-29 21:03] VITALS: BP 128/72; PULSE 76; RESP 18; TEMP 36.7; O2SAT 98
== END 2024-01-29 21:04 | disposition home or self-care (01) ==
PROVIDERS: Physician Assistant; Emergency Provider Emergency Medicine; PCP Internal Medicine
DX: M21.331 Wrist drop, right wrist (principal); M54.2 Cervicalgia; M25.531 Pain in right wrist; R51.9 Headache, unspecified; R94.31 Abnormal electrocardiogram [ECG] [EKG]; Z79.899 Other long term (current) drug therapy
CPT/HCPCS: 36415; 70450; 72125; 80053; 81001; 83690; 83735; 85025; 93005; 99283; 99284

== ENCOUNTER → 2024-01-29 19:14 | Outpatient (BNV) | payer OTHER, SELFPAY | PROVIDERS: Emergency Provider Emergency Medicine; PCP Internal Medicine; Visit Provider Internal Medicine | DX: R53.1 Weakness (principal) | CPT/HCPCS: 93010 ==

== ENCOUNTER 2024-03-25 | Outpatient (REF) | payer SELFPAY ==
--- OUTSIDE RECORDS SUMMARY | 2024-03-26 11:58 | XMS_ITS | Clinical Summary ---
Author Organization [facility] Address [address] [place] [address] Care Team Providers Care Supervisor [employer] Name Role Phone Unknown Primary Care Provider [phone] Allergies No known active allergies Medications Medication Sig Dispensed Refills Start Date End Date Status oxyCODONE-acetaminoph en (PERCOCET) 7.5-325 mg per tablet Take 1 tablet by mouth Every 4 (four) to 6 (six) hours as needed for moderate pain. Max Daily Amount: 6 tablets 6 tablet 07/12/2017 Active Immunizations Name Administration Dates Next Due Tdap 07/12/2017 Social History Tobacco Use Types Packs/Day Years Used Date Smoking Tobacco: Never Assessed Sex and Gender Information Value Date Recorded Sex Assigned at Not on file Gender Identity Not on file Sexual Orientation Not on file Last Filed Vital Signs Vital Sign Reading Time Taken Comments Blood Pressure 157/90 05/18/2018 2:59 PM EDT Pulse 82 05/18/2018 2:59 PM EDT Temperature 36.3 ??C (97.4 ??F) 05/18/2018 2:59 PM ED T Respiratory Rate 18 05/18/2018 2:59 PM EDT Oxygen Saturation 97% 05/18/2018 2:59 PM EDT Inhaled Oxygen Concentration - - Weight - - Height - - Body Mass Index - - Plan of Treatment Health Maintenance Due Date Last Done Comments Hepatitis C Virus Screening 1980 HIV Screening 1993 Hepatitis B Vaccines (1 of 3 - 19+ 3-dose series) 07/25/1999 Influenza Vaccine 09/12/2023 COVID-19 Vaccine (2023-2 5 season) 2023 DTaP/Tdap/Td Vaccines (2 - T d or Tdap) 07/13/2027 07/12/2017 HPV Vaccines Aged Out No longer eligi ble based on patient's age to complete this topic Pneumococcal Vaccine: Pediat daya (0-5 Years) and At-Risk Patients (6 to 49 Years) Aged Out No longer eligible b ased on patient's age to complete this topic Care Teams Supervisor [employer] Relationship Specialty Start Date End Date Unknown Unknow Provider Address PCP - General 05/18/17
--- OUTSIDE RECORDS SUMMARY | 2024-03-26 11:58 | XMS_ITS | Encounter Summary ---
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 Name Role Phone Houston Sumner MD Primary Care Provide r Encounter Details Date Type Department Care Team (Late st Contact Info) Description 03/25/2024 3:40 PM EST Office Visit [facility] [address] [place], [place] [phone] Arie Fleming MD [address] [place] [address] Paronychia of right index finger (Primary Dx); Essential hypertension Social History Tobacco Use Types Packs/Day Years Used Date Smoking Tobacco: Never Passive Smoke Exposure: Never Smokeless Tobacco: Never Alcohol Use Standard Drinks/Week Comments Defer 0 (1 standard drink = 0.6 oz pur e alcohol) Depression Answer Date Recorded Patient Health Questionnaire-9 Score 5 03/29/2022 Housing Stability Answer Date Recorded What is your housing situation today? I have franko mejía 03/25/[address] you li ve. Do you have problems with any of the following? None of the above 03/25/2024 Food Insecurity Answer Date Recorded Within the past 12 months, y ou worried that your food would run out before you got money to buy more: Never True 03/25/2024 Within the past 12 months,th e food you bought just didn't last and you didn't have enough money to get more: Never True 01/2025 Transportation Answer Date Recorded In the past 12 months, has l ack of transportation kept you from medical appts, meetings, work or from getting things needed for daily living? No 03/25/2024 Utilities Answer Date Recorded In the past 12 months, has t he electric, gas, oil or water company threatened to shut off services in your home? No 03/25/2024 Depression Answer Date Recorded Patient Health Questionnaire-2 Score 2 03/29/2022 Internet Access Answer Date Recorded Internet Access Q1 Yes 10/11/2023 Internet Access Q2 Not on file 10/11/2023 Sex and Gender Information Value Date Recorded Sex Assigned at Male 12/11/2021 10:21 AM EDT Legal Sex Male 10:21 AM EDT Gender Identity Male 12/11/2021 10:21 AM EDT Sexual Orientation Straight 12/11/2021 10 :21 AM EDT documented as of this encounter Last Filed Vital Signs Vital Sign Reading Time Taken Comments Blood Pressure 140/88 03/25/2024 3:41 PM EST Pulse 87 03/25/2024 3:28 PM EST Temperature 36.1 ??C (97 ??F) 03/25/2024 3:28 PM EST Respiratory Rate 17 03/25/2024 3:28 PM EST Oxygen Saturation 98% 03/25/2024 3:28 PM EST Inhaled Oxygen Concentration - - Weight 74.5 kg (164 lb 3.2 oz) 03/25/2024 3:28 P M EST Height - - Body Mass Index 30.03 10/31/2023 11:31 AM EDT documented in this encounter Progress Notes * Arie Fleming MD - 03/25/2024 3:40 PM ESTAssociated Order(s): Incise and drain finger abscess Post-Procedure Diagnose(s): Paronychia of right index finger Subjective Patient ID: Олег Rangel is a 43 y.o. male. HPI 8 days ago Олег noticed redness of right index finger around lateral side of nail, became swollen, painful, hot. It occurred after he pulled a piece of cuticle from that area of finger. Tried cold and hot water soaks. No fever, chills, drainage. Right-handed. Lives with . 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 Never smoked. Last EtOH was 3 years ago. Patient Active Problem List Diagnosis Essential hypertension Pure hypercholesterolemia Type 2 diabetes mellitus (CMS/HCC) Low back pain radiating to right lower extremity Right hip pain Rash of back Subacute cough Sleep disturbances Stye Symptomatic irreversible pulpitis The following portions of the chart were reviewed this encounter and updated as appropriate: Tobacco Allergies Meds Problems Med Hx Surg Hx Fam Hx Review of Systems Constitutional: Negative for fever. Respiratory: Negative for shortness of breath. Cardiovascular: Negative for chest pain. Gastrointestinal: Negative for abdominal pain. Skin: Positive for rash. Neurological: Negative for headaches. Objective Physical Exam Vitals and nursing note reviewed. Constitutional: Appearance: Normal appearance. HENT: Head: Normocephalic and atraumatic. Nose: Nose normal. Eyes: Conjunctiva/sclera: Conjunctivae normal. Pupils: Pupils are equal, round, and reactive to light. Comments: Right pterygium Cardiovascular: Heart sounds: No murmur heard. Pulmonary: Effort: Pulmonary effort is normal. Musculoskeletal: General: Normal range of motion. Cervical back: No tenderness. Skin: General: Skin is warm and dry. Findings: No rash. Comments: Right index finger: redness, tenderness, swelling over skin adjacent to lateral side of nail. There is granulation tissue at edge of nail fold next to nail with serous drainage. Neurological: Mental Status: He is alert. Gait: Gait is intact. Psychiatric: Mood and Affect: Mood and affect normal. Behavior: Behavior normal. Incise and drain finger abscess Date/Time: 03/25/2024 4:31 PM Performed by: Arie Fleming MD Authorized by: Arie Fleming MD Consent: Consent obtained: Written Consent given by: Patient Procedure risks and benefits discussed: Yes Patient questions answered: Yes Patient agrees, verbalizes understanding, and wants to proceed: Yes Upham protocol: Procedure explained and questions answered to patient or proxy's satisfaction: yes Immediately prior to procedure, a time out was called: yes Patient identity confirmed: Verbally with patient Pre-procedure details: Skin preparation: Antiseptic wash Preparation: Patient was prepped and draped in the usual sterile fashion Sedation: Sedation type: None Anesthesia: Anesthesia method: Topical application Topical anesthesia: ethyl chloride spray. Procedure specific details: Affected perionychium was elevated from nail with back of #15 scalpel blade with no drainage obtained. After topical anesthesia with ethyl chloride spray, incision was made through skin adjacent to affected perionychium with no drainage except mild amount of blood. Area was cleaned, covered with Bacitracin ointment and sterile dressing. Post-procedure details: Procedure completion: Tolerated well, no immediate complications Assessment/Plan Diagnoses and all orders for this visit: Paronychia of right index finger I&D attempt documented in procedure note. Advised warm soaks. Prescribed acetaminophen, ibuprofen, doxycycline, Duricef. Given Bacitracin ointment and dressing materials. C&S of serous drainage from granulation tissue pending. Wound check scheduled in [facility] in 2 days. - Wound culture Essential hypertension Other orders - Blood Pressure kit; 1 each 2 times daily. - acetaminophen (Tylenol) 500 MG tablet; Take 2 tablets (1,000 mg) by mouth every 6 (six) hours if needed for moderate pain or fever for up to 25 doses. - ibuprofen 400 MG tablet; Take 1 tablet (400 mg) by mouth every 6 (six) hours if needed for moderate pain or fever for up to 30 doses. - cefadroxil (Duricef) 500 MG capsule; Take 1 capsule (500 mg) by mouth 2 times daily for 5 days. - doxycycline (Vibramycin) 100 MG capsule; Take 1 capsule (100 mg) by mouth 2 times daily for 5 days. Take with at least 8 ounces (large glass) of water, do not lie down for 30 minutes after - Incise and drain finger abscess documented in this encounter Plan of Treatment Upcoming Encounters Date Type Department Care Team (Late st Contact Info) Description 03/27/2024 9:00 AM EST Office Visit [facility] [address] [place] [phone] 04/06/2024 2:00 PM EST Office Visit [facility] [address] [place] [phone] 04/07/2024 1:30 PM EST Office Visit [facility] [address] [place] [phone] Houston Sumner MD [address] [place] [phone] Scheduled Orders Name Type Priority Associated Diagnoses Orde r Schedule Wound culture Microbiology Routine Paronychia of right index finger Ordered: 03/25/2024 documented as of this encounter Procedures Procedure Name Priority Date/Time Associated Diagnosis Comments INCISE AND DRAIN FINGER ABSCESS Routine 03/25/2024 4:31 PM EST Paronychia of right index finger documented in this encounter Results * Incise and drain finger abscess (03/25/2024 4:31 PM EST) Arie Hayward MD - 03/25/2024 4:31 PM EST Arie Fleming MD ? 03/25/2024 ??4:42 PM Incise and drain finger abscess Date/Time: 03/25/2024 4:31 PM Performed by: Arie Fleming MD Authorized by: Arie Fleming MD ?? Consent: ??Consent obtained: ??Written ??Consent given by: ??Patient ??Procedure risks and benefits discussed: Yes ?Patient questions answered: Yes ?Patient agrees, verbalizes understanding, and wants to proceed: Yes ?? Upham protocol: ??Procedure explained and questions answered to patient or proxy's satisfaction: yes ?Immediately prior to procedure, a time out was called: yes ?Patient identity confirmed: ??Verbally with patient Pre-procedure details: ??Skin preparation: ??Antiseptic wash ??Preparation: Patient was prepped and draped in the usual sterile fashion Sedation: ??Sedation type: ??None Anesthesia: ??Anesthesia method: ??Topical application ??Topical anesthesia: ethyl chloride spray. Procedure specific details: ?? Affected perionychium was elevated from nail with back of #15 scalpel blade with no drainage obtained. After topical anesthesia with ethyl chloride spray, incision was made through skin adjacent to affected perionychium with no drainage except mild amount of blood. Area was cleaned, covered with Bacitracin ointment and sterile dressing. Post-procedure details: ??Procedure completion: ??Tolerated well, no immediate complications us Arie Fleming MD IN CLINIC/BEDSIDE ORDERABLES Fin al Result documented in this encounter Visit Diagnoses Diagnosis Paronychia of right index finger- Primary Essential hypertension Unspecified essential hypertension documented in this encounter Additional Health Concerns Assessment Noted Time PHQ-9 Depression Total Score: 5 03/29/19 23 2:24 PM EST documented as of this encounter Care Teams Earthmoving Plant Operator Relationship Specialty Start Date End Date Houston Sumner MD [address] [place] [phone] PCP - General Internal Medicine 06/02/14 documented as of this encounter
--- OUTSIDE RECORDS SUMMARY | 2024-03-26 11:58 | XMS_ITS | Encounter Summary ---
Author Organization [employer] Address [address] [facility] [address] [place] [address] Care Team Providers Care Hand Quilter Name Role Phone Houston Sumner MD Primary Care Provide r Reason for Visit * Reason Onset Date Comments Chart Prep 03/25/2024 Encounter Details Date Type Department Care Team ([facility] st Contact Info) Description 03/25/2024 Telephone [facility] [address] [place] [address] Houston Sumner MD [address] [place] [address] Chart Prep Social History Tobacco Use Types Packs/Day Years [...] AM EDT documented as of this encounter Miscellaneous Notes * Telephone Encounter - Torie Dunbar [place] - 03/25/2024 2:18 PM EST Chart Prep Labs: done Images: done ; PFT not completed, looks like it was ordered as internal so it was never faxed anywhere. Vaccines due: Covid Due, Hep B Due, PCV20 Due, and Flu Due Referrals: Neurology Completed Screenings: Eye Exam, Foot Exam, and HIV screening Overdue care gaps: A1C, Glucose, Sbirt, and PHQ-9 Chart prep for upcoming appt with Dr.Esparza helm. LB documented in this encounter Plan of Treatment Upcoming Encounters Date Type Department Care Team (Late st Contact Info) Description 03/27/2024 9:00 AM EST Office Visit [facility] [address] [place] [address] 04/06/2024 2:00 PM EST Office Visit [facility] [address] [place] [address] 04/07/2024 1:30 PM EST Office Visit [facility] [address] [place] [address] Houston Sumner MD [address] [place] [address] documented as of this encounter Visit Diagnoses Not on filedocumented in this encounter Additional Health Concerns Assessment Noted Time PHQ-9 Depression Total Score: 5 03/29/19 23 2:24 PM EST documented as of this encounter Care Teams Hand Quilter Relationship Specialty Start Date End Date Houston Sumner MD [address] [place] [address] PCP - General Internal Medicine 06/02/14 documented as of this encounter
--- OUTSIDE RECORDS SUMMARY | 2024-03-26 11:58 | XMS_ITS | Encounter Summary ---
Author Organization [employer] Address [address] [facility] 7[address] [place] [address] Care Team Providers Care Manager Forensic Name Role Phone Houston Sumner MD Primary Care Provide r Reason for Visit * Reason Comments Pre-visit Planning SDOH Screening negat amee and Tobacco screening negative Encounter Details Date Type Department Care Team ([facility] st Contact Info) Description 03/25/2024 Patient Outreach [facility] [address] [place] [address] Houston Sumner MD [address] [place], [place] [phone] Pre-visit Planning (SDOH Screening negative and Tobacco screening negative) Social History Tobacco Use Types Packs/Day Years [...] AM EDT documented as of this encounter Progress Notes * Rach Perkins - 03/25/2024 11:35 AM EST GERMAN Coleman placed successful outbound call to patient for pre-visit planning. Patient name and confirmed. Patient confirms appt date and time, and has transportation arrangements. Biggest concern for appointment at this time is no concerns at the moment. Patient advised to bring to appointment a photo id and insurance card. Appropriate screenings completed in anticipation of appointment. documented in this encounter Plan of Treatment Upcoming Encounters Date Type Department Care Team (Late st Contact Info) Description 03/27/2024 9:00 AM EST Office Visit [facility] [address] [place] [address] 04/06/2024 2:00 PM EST Office Visit [facility] [address] [place] [address] 04/07/2024 1:30 PM EST Office Visit [facility] [address] [place] [address] Houston Sumner MD [address] [place] [address] documented as of this encounter Visit Diagnoses Not on filedocumented in this encounter Additional Health Concerns Assessment Noted Time PHQ-9 Depression Total Score: 5 03/29/19 23 2:24 PM EST documented as of this encounter Care Teams Manager Forensic Relationship Specialty Start Date End Date Houston Sumner MD [address] [place] [phone] PCP - General Internal Medicine 06/02/14 documented as of this encounter
--- OUTSIDE RECORDS SUMMARY | 2024-03-26 11:58 | XMS_ITS | Clinical Summary ---
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 12/08/19 22 Active aspirin 81 MG EC tablet Take 1 tablet by mouth at bed time. 12/16/19 21 Active FREESTYLE LITE test stripIndications :Type 2 diabetes mellitus without complication, without long-term current use of insulin ([facility]) Test 3 times a day, pt on Insulin 100 each 11 03/29/19 23 Active insulin glargine (Lantus SoloStar) 100 UNIT/ML penIndications:T ype 2 diabetes mellitus without complication, without long-term current use of insulin ([facility]) INJECT 18 UNITS SUBCUTANEOUSLY DIRECTED 30 mL 1 07/24/19 23 Active metFORMIN XR (Glucophage-XR) 500 MG 24 hr tablet TAKE 2 TABLETS BY MOUTH TWICE DAILY IN THE MORNING AND IN THE EVENING WITH MEALS 120 tablet 6 02/01/20 23 Active lisinopril 20 MG tabletIndication s:Essential hypertension Take 1 tablet (20 mg) by mouth in the morning. 30 tablet 6 04/02/19 24 Active dulaglutide (Trulicity) 0.75 MG/0.5ML solution pen-injectorIndi cations:Type 2 diabetes mellitus without complication, without long-term current use of insulin ([facility]) Inject 0.75 mg under the skin 1 (one) time per week. 4 each 3 04/02/19 Active Blood Pressure kit 1 each 2 times daily. 1 kit 03/25/19 25 026 Active acetaminophen (Tylenol) 500 MG tablet Take 2 tablets (1,000 mg) by mouth every 6 (six) hours if needed for moderate pain or fever for up to 25 doses. 50 tablet 03/25/19 25 Active ibuprofen 400 MG tablet Take 1 tablet (400 mg) by mouth every 6 (six) hours if needed for moderate pain or fever for up to 30 doses. 30 tablet 03/25/19 25 Active cefadroxil (Duricef) 500 MG capsule Take 1 capsule (500 mg) by mouth 2 times daily for 5 days. 10 capsule 03/25/19 25 025 Active doxycycline (Vibramycin) 100 MG capsule Take 1 capsule (100 mg) by mouth 2 times daily for 5 days. Take with at least 8 ounces (large glass) of water, do not lie down for 30 minutes after 10 capsule 03/25/19 25 025 Active amoxicillin (Amoxil) 500 MG capsule Take 1 capsule (500 mg) by mouth every 8 (eight) hours for 7 days. 21 capsule 03/06/19 25 025 ibuprofen 400 MG tablet Take 1 tablet (400 mg) by mouth 3 times daily for 7 days. 21 tablet 03/06/19 25 025 acetaminophen (Tylenol) 500 MG tablet Take 1 tablet (500 mg) by mouth every 8 (eight) hours if needed for mild pain for up to 7 days. 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 Cough variant asthma ? Plan: Chest x-ray, PFTs Sleep disturbances 04/02/2023 Assessment & Plan (04/02/2023 1:49 PM EST): Pt with c/o loud snoring and difficulty sleeping Plan: Sleep study Low back pain radiating to right lower extremity 03/29/2022 Assessment & Plan (04/02/2023 1:35 PM EST): Pt with previous c/o this Plain x-rays LS spine 03/25/2023 showed: 1. Unchanged Normal lumbosacral spine x-ray. 2. No fracture or dislocation of lumbar spine is seen. And Normal x-ray of right hip. No fracture or dislocation or signs of avascular necrosis are seen. Assessment & Plan (04/17/2022 2:36 PM EST): Pt had to travel and was unable to obtain the x-rays . Promised he would do it Right hip pain 03/29/2022 Assessment & Plan (04/17/2022 2:36 PM EST): Pt had to travel and was unable to obtain the x-rays . Promised he would do it Rash of back 03/29/2022 Assessment & Plan (04/17/2022 2:36 PM EST): resolved Essential hypertension 03/17/2015 Assessment & Plan (04/02/2023 1:52 PM EST): Pt is here for a f/u He is on a regimen of: Lisinopril 10 mg po daily, Most recent electrolytes, Bun and Creatinine done on 03/24/2022 were within normal limits. Today will order a repeat BMP Plan: Increase Lisinopril 20 mg po daily. patient advised to adhere to a low sodium diet, encouraged about medication compliance, counseled about weight loss. Assessment & Plan (04/17/2022 2:35 PM EST): Pt is here for a f/u He is on a regimen of: Lisinopril 10 mg po daily, Most recent electrolytes, Bun and Creatinine done on 03/24/2022 were within normal limits. Plan: continue Lisinopril 10 mg po daily. patient advised to adhere to a low sodium diet, encouraged about medication compliance, counseled about weight loss. Assessment & Plan (03/29/2022 10:56 AM EST): Pt is here for a f/u He is supposed to be on a regimen of: Lisinopril 10 mg po daily, Most recent electrolytes, Bun and Creatinine done on 03/24/2022 were within normal limits. Plan: continue Lisinopril 10 mg po daily. patient advised to adhere to a low sodium diet, encouraged about medication compliance, counseled about weight loss. 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 Will do a PA Continue Lantus same dose. Foot check risk of zero Pt On Asa Pt advised to: adhere to diabetic diet check your blood sugars regularly check your feet on a daily basis. f/u 8 weeks Assessment & Plan (04/17/2022 2:36 PM EST): Pt is here for a f/u He is supposed to be on a regimen of Metformin 500 mg 2 tab po BID. Pt tells me he is only taking 2 tabs daily and he satrted Lantus 10 units sq q pm Hgb A1c 03/29/2022 was 12,9 Eye exam: referred to our Eye Care program Microalbumin 05/26/2020 was 2 Pt not on an CHETNA inhibitor/ARB Plan: Increase to Lantus 18 units subcutaneous at bedtime and Increase Metformin to 500 mg 2 tabs po BID Foot check risk of zero Pt On Asa Pt advised to: adhere to diabetic diet check your blood sugars regularly check your feet on a daily basis. f/u 2 weeks Assessment & Plan (03/29/2022 2:32 PM EST): Pt is here for a f/u after a log hiatus He is supposed to be on a regimen of Metformin 500 mg 2 tab po BID Hgb A1c 03/29/2022 was 12,9 Eye exam: referred to our Eye Care program Microalbumin 05/26/2020 was 2 Pt not on an CHETNA inhibitor/ARB Plan: Start Lantus 10 units subcutaneous qhs Foot check risk of zero Pt On Asa Pt advised to: adhere to diabetic diet check your blood sugars regularly check your feet on a daily basis. f/u 1-2 weeks Pure hypercholesterolemia 02/25/2012 Assessment & Plan (04/02/2023 1:34 PM EST): Patient here for a f/u Patient with elevated lipids. Most recent lipid profile from: 03/14/2021 shows a total cholesterol of: 133 triglycerides of: 117 HDL of: 44 and LDL of: 69 Currently on Atorvastatin 20 mg po qhs Plan: Repeat Lipid profile. Pt did not do it yet advised to try to adhere to a low cholesterol diet, counseled and educated about diet and exercise, Patient encouraged to come up with a personal goal for weight loss. Assessment & Plan (04/17/2022 2:36 PM EST): Patient here for a f/u Patient with elevated lipids. Most recent lipid profile from: 03/14/2021 shows a total cholesterol of: 133 triglycerides of: 117 HDL of: 44 and LDL of: 69 Currently on Atorvastatin 20 mg po qhs Plan: Repeat Lipid profile. Pt did not do it yet advised to try to adhere to a low cholesterol diet, counseled and educated about diet and exercise, Patient encouraged to come up with a personal goal for weight loss. Assessment & Plan (03/29/2022 10:58 AM EST): Patient here for a f/u Patient with elevated lipids. Most recent lipid profile from: 03/14/2021 shows a total cholesterol of: 133 triglycerides of: 117 HDL of: 44 and LDL of: 69 Currently on Atorvastatin 20 mg po qhs Plan: Repeat Lipid profile advised to try to adhere to a low cholesterol diet, counseled and educated about diet and exercise, Patient encouraged to come up with a personal goal for weight loss. Encounters Date Type Department Care Team Description 03/25/2024 3:40 PM EST Office Visit [facility] [address] [place] [address] Arie Fleming MD Paronychia of right index finger (Primary Dx); Essential hypertension 03/25/2024 2:00 PM EST Office Visit [facility] ADULT DENTAL [address] [place] [address] Edi Arguello 03/25/2024 Telephone [facility] [address] [place] [address], [place] [address] Houston Sumner MD Chart Prep 03/25/2024 Patient Outreach [facility] [address] [place] [phone] Houston Sumner MD Pre-visit Planning (SDOH Screening negative and Tobacco screening negative) 03/17/2024 1:00 PM EST Office Visit [facility] ADULT [facility]ENT[facility] [address] [place] [address] Edi Arguello 03/09/2024 11:30 AM EST Office Visit [facility] AD[facility] [address] [place] [address] Lang Spence DDS Symptomatic irreversible pulpitis (Primary Dx) 03/06/2024 11:30 AM EST Office Visit [facility] ADULT DENT[facility] [address] [place] [address] Josias Orta DDS 02/17/2024 Telephone [facility] [address] [place] [address] Houston Sumner MD Appointment Request 01/29/2024 3:20 PM EST Office Visit [facility] [address] [place] [address] Arie Fleming MD Weakness of right upper extremity (Primary Dx); Weakness of right lower extremity; Paresthesia of hand; Acute intractable headache, unspecified headache type 01/29/2024 Orders Only [facility] External Provider, [facility] 01/28/2024 Telephone [facility] [address] [place] [address] Zoe Aguiar MA Mar.Recall from Last 3 Months Immunizations Name Administration Dates Next Due Hep B, adult 12/15/2020,04/10/2011 Influenza injectable quadriv alent IIV4 with preservative 10/23/2018 Influenza injectable quadrivalent preservative f ree 12/15/2020,05/04/2014 Influenza, IIV3, injectable 09/12/2011 Pneumococcal Polysaccharide PPSV23 05/21/2017 Tdap 12/15/2020,07/12/2017 Social History Tobacco Use Types Packs/Day Years Used Date Smoking Tobacco: Never Passive Smoke Exposure: Never Smokeless Tobacco: Never Tobacco Cessation:Counseling Given: Not Answered Alcohol Use Standard Drinks/Week Comments Defer 0 [...] Orientation Straight 12/11/2021 10 :21 AM EDT Last Filed Vital Signs Vital Sign Reading [...] oz) 03/25/2024 3:28 P M EST Height 157.5 cm (5' 2 ) 10/31/2023 11:31 AM EDT Body Mass Index 30.03 10/31/2023 11:31 AM EDT Plan of Treatment Upcoming Encounters Date Type Department Care Team (Late st Contact Info) Description 03/27/2024 9:00 AM EST Office Visit [facility] [address] [place] [phone] 04/06/2024 2:00 PM EST Office Visit [facility] ADULT DENTAL [address] [place] [phone] 04/07/2024 1:30 PM EST Office Visit [facility] [address] [place] [phone] Houston Sumner MD [address] [place] [phone] Health Maintenance Due Date Last Done Comments HIV Screening 1980 Diabetes: Foot Exam 1990 Eye Exam 1990 Alcohol/Substance Use Screening 1992 Family Planning (PISQ) 07/25/1995 Hepatitis C Screening 1998 Pneumococcal Vaccine: Pediatrics (0 to 5 Years) and At-Risk Patients (6 to 49) Years) (2 of 2 - PCV) 05/21/2018 05/21/2017 Hepatitis B Vaccines (3 of 3 - 19+ 3-dose series) 02/09/2021 12/15/2020, 04/10/2011 Diabetes: Urine Protein Screening 05/26/2021 05/26/2020 Depression Screening 03/29/2023 03/29/2022, 03/29/19 Diabetes: Hemoglobin A1C 07/01/2023 024, 03/29/2022, 05/26/2020 COVID-19 Vaccine ( season) 2023 07/01/2020, 06/10/2020 Influenza Vaccine (#1) 2023 , 10/23/2018, 05/04/2014, Additional history exists Lipid Panel 04/05/2024 04/05/2023, 02/0 02/2021, 05/26/2020 Dental Oral Exam 09/15/2024 03/17/2024 Dental Prophylaxis 09/15/2024 03/17/2024 Dental X-Ray: Bitewings 03/18/2025 03/17/2024, 03/06 SDOH Screening 03/25/2025 03/25/2024 Tobacco Screening 03/25/2025 03/25/2024 Dental X-Ray: Full Mouth 03/18/2027 03/17/2024 Zoster Vaccines (1 of 2) 2030 DTaP/Tdap/Td Vaccines (3 - Td or Tdap) 12/15/2030 12/15/2020, 07/12/2017 RSV Patients and Patients Aged 60 years or older (1 - 1-dose 75+ series) 07/25/2055 HIB Vaccines Aged Out No longer eligi ble based on patient's age to complete this topic HPV Vaccines Aged Out No longer eligi ble based on patient's age to complete this topic Hepatitis A Vaccines Aged Out No long er eligible based on patient's age to complete this topic IPV Vaccines Aged Out No longer eligi ble based on patient's age to complete this topic Meningococcal Vaccine Aged Out No evelio clementine eligible based on patient's age to complete this topic RSV under 20 months Aged Out No longe r eligible based on patient's age to complete this topic Rotavirus Vaccines Aged Out No longer eligible based on patient's age to complete this topic Procedures Procedure Name Priority Date/Time Associated Diagnosis Comments INCISE AND DRAIN FINGER ABSCESS Routine 03/25/2024 4:31 PM EST Paronychia of right index finger CASE PRESENTATION, DETAILED AND EXTENSIVE TREATMENT PLANNING Routine 03/25/2024 2:00 PM EST 4 CORE BUILDUP, INCL ANY PINS WHEN REQ Routine 03/25/2024 2:00 PM EST CASE PRESENTATION, DETAILED AND EXTENSIVE TREATMENT PLANNING Routine 03/17/2024 1:00 PM EST INTRAORAL - COMPLETE SERIES OF RADIOGRAPHIC IMAGES Routine 03/17/2024 1:00 PM EST PROPHYLAXIS - ADULT Routine 03/17/2024 1 :00 PM EST COMPREHENSIVE ORAL EVALUATION - NEW OR ESTABLISHED PATIENT Routine 03/17/2024 1:00 PM EST 4 ROOT CANAL Routine 03/17/2024 12:00 AM EST 30 CROWN - PORCELAIN/CERAMIC Routine 03/17/2024 12:00 AM EST 30 ROOT CANAL Routine 03/17/2024 12:00 AM EST 11 ABUTMENT SUPPORTED PORCELAIN/CERAMIC CROWN Routine 03/17/2024 12:00 AM EST 14 ABUTMENT SUPPORTED PORCELAIN/CERAMIC CROWN Routine 03/17/2024 12:00 AM EST 12 PONTIC - PORCELAIN/CERAMIC Routine 03/17/2024 12:00 AM EST 13 PONTIC - PORCELAIN/CERAMIC Routine 03/17/2024 12:00 AM EST CASE PRESENTATION, DETAILED AND EXTENSIVE TREATMENT PLANNING Routine 03/09/2024 11:30 AM EST 15 EXTRACTION, ERUPTED TOOTH OR EXPOSED ROOT (ELEVATION/FORCEPS REMOVAL) Routine 03/09/2024 11:30 AM EST 14 ROOT CANAL Routine 03/09/2024 12:00 AM EST 14 CROWN - PORCELAIN/CERAMIC Routine 03/09/2024 12:00 AM EST 18 EXTRACTION Routine 03/09/2024 12:00 AM EST 16 EXTRACTION Routine 03/09/2024 12:00 AM EST CASE PRESENTATION, DETAILED AND EXTENSIVE TREATMENT PLANNING Routine 03/06/2024 11:30 AM EST INTRAORAL - PERIAPICAL FIRST RADIOGRAPHIC IMAGE Routine 03/06/2024 11:30 AM EST BITEWING - SINGLE RADIOGRAPHIC IMAGE Routine 03/06/2024 11:30 AM EST PALLIATIVE (EMERGENCY) TREATMENT OF DENTAL PAIN - MINOR PROCEDURE Routine 03/06/2024 11:30 AM EST URINALYSIS, COMPLETE, WITH REFLEX TO CULTURE Routine 01/29/2024 7:[address] CERVICAL SPINE WO CONTRAST Routine 01/29/2024 6:50 PM EST LIPASE Routine 01/29/2024 4:00 PM EST MAGNESIUM Routine 01/29/2024 4:00 PM EST COMPREHENSIVE METABOLIC PANEL Routine 01/29/2024 4:00 PM EST CBC WITH AUTO DIFFERENTIAL Routine 01/29/2024 4:[address] HEAD WO CONTRAST Routine 01/29/2024 3 :54 PM EST LIPID PANEL WITH REFLEX TO DIRECT LDL Routine 04/05/2023 10:30 AM EST Pure hypercholesterolemia POCT GLYCATED HEMOGLOBIN, TOTAL Routine 04/02/2023 1:25 PM EST Type 2 diabetes mellitus without complication, without long-term current use of insulin ([facility]) ALBUMIN, RANDOM URINE W/CREATININE Routine 05/26/2020 10:19 AM EDT from Last 3 Months or Most Recently Relevant to Health Maintenance Results * Incise and drain finger abscess (03/25/2024 4:31 PM EST) Narrative Arie Fleming MD - 03/25/2024 4:31 PM EST Arie Fleming MD ? 03/25/2024 ??4:42 PM Incise and drain finger abscess Date/Time: 03/25/2024 4:31 PM Performed by: Arie Fleming MD Authorized by: Arie Fleming MD ?? Consent: ??Consent obtained: ??Written ??Consent given by: ??Patient ??Procedure risks and benefits discussed: Yes ?Patient questions answered: Yes ?Patient agrees, verbalizes understanding, and wants to proceed: Yes ?? [place] protocol: ??Procedure explained and questions answered to [...] MD IN CLINIC/BEDSIDE ORDERABLES Fin al Result * (ABNORMAL) Urinalysis, Complete, with Reflex to Culture (01/29/2024 7:10 PM EST) Color Urine Yellow [facility] Appearance Urine Clear [facility] PH 5.5 5.0 - 9.0 [facility] Glucose Urine UA >=1000(A) Negative mg/dL [facility] Urine Blood Negative Negative [facility] Specific Egan - Urine >=1.030(H) 1.005 - 1.025 [facility] Urine Protein Negative Neg-Trace mg/dL [facility] Urine Ketones Negative Negative mg/dL [facility] Nitrite Urine Negative Negative [facility] Leukocyte Esterase Urine Negative Negative [facility] RBC Urine 0-2 0 - 2 /HPF [facility] Urine WBC 0-5 0 - 5 /HPF [facility] Urine Squamous Epithelial Cell 0-2 0 - 2 /HPF [facility] Urine Bacteria None Seen None Seen [facility] Hyaline Casts, Urine 0-2 0 - 2 /LPF [facility] 01/29/2024 7:10 PM EST 01/29/2024 7:13 PM EST Narrative [facility] - 01/29/2024 7:44 PM EST [id number], Clean Catch us Generic External Data Provider LAB URINE ORDERAB LES Final Result [facility] [address] [place] [address] [phone] * CT Cervical Spine w/o Contrast (01/29/2024 6:50 PM EST) Anatomical Region Laterality Modality Spine, C-spine Computed Tomogra phy 01/29/2024 6:50 PM EST Narrative 01/29/2024 8:14 PM EST ? [facility] ?[address] ?[place] [address] ? [address] Scan Report ? Signed ? Patient: Trent RangelОлег ?MR#: [id number] ?? [id number] ? : 1980 ?Acct:[id number] ? Age/Sex: 43 / M ?ADM Date: 01/29/24 ? Loc: HO.ED ? Attending Dr: ? Ordering Physician: Sydney Kimball DO ?? Date of Service: 01/29/24 ?? Procedure(s): CT cervical spine wo IV con ?? Accession Number(s): [id number] ? cc: Sydney Kimball DO; Houston Castillo MD ? EXAMINATION: ?? CT CERVICAL SPINE WITHOUT CONTRAST ? CLINICAL INFORMATION: ?? Neck pain, arm pain. ? COMPARISON: ?? None available. ? TECHNIQUE: ?? Axial imaging. Sagittal and coronal reconstructions. ? This CT examination was performed using dose optimization techniques as ?? appropriate, variously including the following: ?? *Automated exposure control ?? *Adjustment of mA and/or kV according to patient size (this includes ?? techniques or standardized protocols for targeted exams where dose is ?? matched to indication/reason for exam; i.e. extremities or head) ?? *Use of iterative reconstruction technique ? DLP: ?? 425 mGy-cm ? FINDINGS: ?? Craniocervical and atlantoaxial articulation is maintained. Vertebral ?? body sagittal alignment is maintained. Predens space is maintained. ?? Vertebral body heights are maintained. The posterior arch of C1 is not ?? fused, with sclerotic margins, suggesting a chronic/congenital process. ?? No evidence of acute fracture or traumatic subluxation. The disc spaces ?? are maintained. Mild endplate spurring at a few levels. The bony ?? central canal is grossly maintained. ?? No significant prevertebral soft tissue swelling. Esophagus is ?? nondistended. Lung apices are clear. ? CT/CT cervical spine wo IV con ?? IMPRESSION: ?? No CT evidence of acute cervical spine fracture or traumatic ?? malalignment. ?? Minimal cervical spondylosis. ?? Etiology of the patient's symptoms has not been determined by CT. ?? Further evaluation with follow-up MRI as clinically indicated. ? Fleischner guidelines were followed. ? Electronically signed by: ??Raul Zamudio MD ??01/29/2024 08:11 PM EST ? Dictated By: ?Raul Zamudio MD ? Signed By: ?<Electronically signed by Raul Zamudio MD in OV> ?01/29/242010 ? DD/ 1850 ? TD/TT: 01/29/24 190 ? Music Grapher: HB ? Procedure Note Eliane Hardin - 01/29/[address] [address] [address] Scan Report Signed Patient: Олег RyderMR#: [id number] : 1980Acct:[id number] Age/Sex: 43 / MADM Date: 01/29/24 Loc: HO.ED Attending Dr: Ordering Physician: Sydney Kimball DO Date of Service: 01/29/24 Procedure(s): CT cervical spine wo IV con Accession Number(s): [id number] cc: Sydney Kimball DO; Houston Castillo MD EXAMINATION: CT CERVICAL SPINE WITHOUT CONTRAST CLINICAL INFORMATION: Neck pain, arm pain. COMPARISON: None available. TECHNIQUE: Axial imaging. Sagittal and coronal reconstructions. This CT examination was performed using dose optimization techniques as appropriate, variously including the following: *Automated exposure control *Adjustment of mA and/or kV according to patient size (this includes techniques or standardized protocols for targeted exams where dose is matched to indication/reason for exam; i.e. extremities or head) *Use of iterative reconstruction technique DLP: 425 mGy-cm FINDINGS: Craniocervical and atlantoaxial articulation is maintained. Vertebral body sagittal alignment is maintained. Predens space is maintained. Vertebral body heights are maintained. The posterior arch of C1 is not fused, with sclerotic margins, suggesting a chronic/congenital process. No evidence of acute fracture or traumatic subluxation. The disc spaces are maintained. Mild endplate spurring at a few levels. The bony central canal is grossly maintained. No significant prevertebral soft tissue swelling. Esophagus is nondistended. Lung apices are clear. CT/CT cervical spine wo IV con IMPRESSION: No CT evidence of acute cervical spine fracture or traumatic malalignment. Minimal cervical spondylosis. Etiology of the patient's symptoms has not been determined by CT. Further evaluation with follow-up MRI as clinically indicated. Fleischner guidelines were followed. Electronically signed by: Raul Zamudio MD 01/29/2024 08:11 PM EST Dictated By: Raul Zamudio MD Signed By: <Electronically signed by Raul Zamudio MD in OV> 01/29/242010 DD/ 1850 TD/TT: 01/29/24 1904 Music Grapher: HB [facility] External Provider IMG CT PROCEDURES Edited Result - Final * CBC auto differential (01/29/2024 4:00 PM EST) White Blood Count 8.8 4.8 - 10.8 X10*3/uL [facility] Red Blood Count 4.81 4.60 - 5.80 X10*6/uL [facility] Hemoglobin 15.3 14.0 - 18.0 g/dl [facility] Hematocrit 43.2 42.0 - 52.0 % [facility] Mean Corpuscular Volume 89.8 80.0 - 98.0 fL [facility] Mean Corpuscular Hemoglobin 31.8 27.0 - 33.0 pg [facility] Mean Corpuscular HGB Conc 35.4 31.0 - 36.0 g/dl [facility] Red Cell Distribution Width 12.6 11.0 - 16.0 % [facility] Platelet Count 233 160 - 400 X10*3/uL [facility] Mean Platelet Volume 9.7 9.4 - 12.4 fL [facility] Neutrophils Percent Auto 58.3 45 - 73 % [facility] Imm Gran Pct Auto 0.2 0.0 - 0.4 % [facility] Lymphocytes Percent Auto 33.4 20 - 40 % [facility] Monocytes Percent Auto 6.5 2 - 11 % [facility] Eosinophils Percent Auto 1.1 0 - 4 % [facility] Basophils Percent Auto 0.5 0 - 2 % [facility] NRBC Pct Auto 0.0 0.0 - 0.2 /100WBC [facility] Neutrophils Absolute Auto 5.1 2.0 - 8.3 x10*3/uL [facility] Imm Gran Abs Auto 0.02 0.00 - 0.03 X10*3/uL [facility] Lymphocytes Absolute Auto 2.9 1.2 - 4.9 X10*3/uL [facility] Monocytes Absolute Auto 0.6 0.1 - 1.2 X10*3/uL [facility] Eosinophils Absolute Auto 0.1 0.0 - 0.4 X10*3/uL [facility] Basophils Absolute Auto 0.0 0.0 - 0.2 X10*3/uL [facility] NRBC Abs Auto 0.000 0.0 - 0.012 X10*3/uL [facility] 01/29/2024 4:00 PM EST 01/29/2024 4:02 PM EST us Generic External Data Provider LAB BLOOD ORDERAB LES Final Result Performing Organization Address [facility] de Phone Number [facility] [address] [place] [phone] * Magnesium (01/29/2024 4:00 PM EST) Pathologist [facility] Magnesium 2.1 1.6 - 2.6 mg/dL [facility] 01/29/2024 4:00 PM EST 01/29/2024 4:02 PM EST Generic External Data Provider LAB BLOOD ORDERAB LES Final Result Performing Organization Address [facility] Phone Number [facility] [address] [place] [phone] * Lipase (01/29/2024 4:00 PM EST) Pathologist [facility] Lipase 35 8 - 78 U/L [facility] 01/29/2024 4:00 PM EST 01/29/2024 4:02 PM EST Generic External Data Provider LAB BLOOD ORDERAB LES Final Result Performing Organization Address [facility] Phone Number [facility] [address] [place] [phone] * (ABNORMAL) Comprehensive Metabolic Panel (01/29/2024 4:00 PM EST) Pathologist [facility] Sodium 136 135 - 145 mmol/L [facility] Potassium 3.8 3.3 - 5.1 mmol/L [facility] Chloride 102 96 - 108 mmol/L [facility] Carbon Dioxide 23 22 - 29 mmol/L [facility] Anion Gap 15 12 - 20 [facility] Urea Nitrogen (BUN) 13 9 - 16 mg/dL [facility] Creatinine, Serum 1.06 0.5 - 1.4 mg/dL [facility] Creatinine Clr Calc Pharmacy 81.9 [facility] Comment:eGFR (calculated fro m the MDRD study equation) and eCrCl(calculated from the Cockcroft-Gault equation) are based ondifferent parameters and may not yield comparable results.If eCrCl result is absurd, please check patient'sheight/weight. Estimated Glomerular Filt Rate >60 [facility] Comment:Chronic Kidney Disea se: Estimated GFR < 60 mL/min/[id number] Kidney Disease: Estimated GFR < 15 mL/min/1.73m2 Glucose 380(HH) 60 - 115 mg/dL [facility] Comment:Critical value for t est(s): GLUCOSE Results called to emmett back by: MO Person calling: [email or web address] Date:01/29/24 Time: 1631 Calcium 9.1 8.4 - 10.2 mg/dL [facility] Bilirubin, Total 0.5 0.0 - 1.0 mg/dL [facility] Aspartate Amino Transferase 20 5 - 37 U/L [facility] Alanine Aminotransferase 27 0 - 40 U/L [facility] Total Protein 7.5 6.5 - 8.0 g/dL [facility] Albumin Level 4.5 3.5 - 5.0 g/dL [facility] Alkaline Phosphatase 105 39 - 117 U/L [facility] 01/29/2024 4:00 PM EST 01/29/2024 4:02 PM EST us Generic External Data Provider LAB BLOOD ORDERAB LES Final Result [facility] [address] [place] [phone] [phone] * CT Head w/o Contrast (01/29/2024 3:54 PM EST) Anatomical Region Laterality Modality Head, Neck Computed Tomogra phy 01/29/2024 3:54 PM EST Narrative 01/29/2024 5:47 PM EST ? [place] [facility] ?[address] ?[place] [address] ? CT Scan Report ? Signed ? Patient: Trent Juan Carlos,Олег ?MR#: [id number] ?? [id number] ? : 1980 ?Acct:[id number] ? Age/Sex: 43 / M ?ADM Date: 01/29/24 ? Loc: HO.ED ? Attending Dr: ? Ordering Physician: Twin Fallon ?? Date of Service: 01/29/24 ?? Procedure(s): CT head/brain wo IV con ?? Accession Number(s): [id number] ? cc: Houston Castillo MD; Twin Fallon ? EXAMINATION: ?? CT HEAD WITHOUT CONTRAST ? CLINICAL INFORMATION: ?? Right-sided facial pain and weakness. ? COMPARISON: ?? None available. ? TECHNIQUE: ?? Contiguous axial imaging was performed from the skull base to vertex ?? without intravenous administration of contrast. ? This CT examination was performed using dose optimization techniques as ?? appropriate, variously including the following: ?? *Automated exposure control. ?? *Adjustment of mA and/or kV according to patient size (this includes ?? techniques or standardized protocols for targeted exams where dose is ?? matched to indication/reason for exam; i.e. extremities or head). ?? *Use of iterative reconstruction technique. ? DLP: ?? 778 mGy-cm ? FINDINGS: ?? There is no evidence of acute intracranial hemorrhage or edematous ?? territorial infarction. Dietrich-white matter differentiation is preserved. ?? There is no abnormal attenuation within the brain parenchyma. The ?? ventricles are normal in morphology and size. No evidence for ?? obstructive hydrocephalus. No abnormal mass effect or midline shift. No ?? extra-axial fluid collections. ? No acute soft tissue or osseous abnormalities. Mild mucosal thickening ?? of the paranasal sinuses. The right-sided mastoid air cells are ?? underdeveloped. Otherwise, the mastoid air cells and middle ear ?? cavities are clear. ? CT/CT head/brain wo IV con ?? IMPRESSION: ?? No evidence of acute intracranial hemorrhage or edematous territorial ?? infarction. ? Electronically signed by: ??Adelso Lorenz DO ??01/29/2024 05:45 PM EST RP ? Dictated By: ?Arie Lorenz DO ? Signed By: ?<Electronically signed by Arie Lorenz, DO in OV> ? 01/29/24 1745 ? DD/ 1554 ? TD/TT: 01/29/24 1647 ? Music Grapher: JOSE ? Procedure Note Donotuseinterpreter, Image - 01/29/[address] [address] [address] Scan Report Signed Patient: Олег RyderMR#: [id number] : 1980Acct:[id number] Age/Sex: 43 / MADM Date: 01/29/24 Loc: HO.ED Attending Dr: Ordering Physician: Twin Fallon Date of Service: 01/29/24 Procedure(s): CT head/brain wo IV con Accession Number(s): [id number] cc: Houston Castillo MD; Twin Fallon EXAMINATION: CT HEAD WITHOUT CONTRAST CLINICAL INFORMATION: Right-sided facial pain and weakness. COMPARISON: None available. TECHNIQUE: Contiguous axial imaging was performed from the skull base to vertex without intravenous administration of contrast. This CT examination was performed using dose optimization techniques as appropriate, variously including the following: *Automated exposure control. *Adjustment of mA and/or kV according to patient size (this includes techniques or standardized protocols for targeted exams where dose is matched to indication/reason for exam; i.e. extremities or head). *Use of iterative reconstruction technique. DLP: 778 mGy-cm FINDINGS: There is no evidence of acute intracranial hemorrhage or edematous territorial infarction. Dietrich-white matter differentiation is preserved. There is no abnormal attenuation within the brain parenchyma. The ventricles are normal in morphology and size. No evidence for obstructive hydrocephalus. No abnormal mass effect or midline shift. No extra-axial fluid collections. No acute soft tissue or osseous abnormalities. Mild mucosal thickening of the paranasal sinuses. The right-sided mastoid air cells are underdeveloped. Otherwise, the mastoid air cells and middle ear cavities are clear. CT/CT head/brain wo IV con IMPRESSION: No evidence of acute intracranial hemorrhage or edematous territorial infarction. Electronically signed by: Adelso Lorenz DO 01/29/2024 05:45 PM EST Dictated By: Arie Lorenz DO Signed By: <Electronically signed by Arie Lorenz DO in OV> 01/29/24 1745 DD/ 1554 TD/TT: 01/29/24 1647 Music Grapher: JOSE [facility] External Provider IMG CT PROCEDURES Edited Result - Final * (ABNORMAL) Lipid Panel with Reflex to Direct LDL (04/05/2023 10:30 AM EST) Triglycerides 139 <150 mg/dL [facility] Comment:Desirable Triglyceri de: less than 150 mg/dLBorderline High Triglyceride 150-199 mg/dLHigh Triglyceride: 200-499 mg/dLVery High Triglyceride: greater than or equal to 5OO mg/dL Cholesterol 218(H) <200 mg/dL [facility] Comment:Desirable Cholestero l: less than 200 mg/dLBorderline High Cholesterol: 200-239 mg/dLHigh Cholesterol: greater than 239 mg/dL LDL Cholesterol Calculated 146(H) <100 mg/dL [facility] Comment:Desirable LDL: less than 100 mg/dLNear Optimal/Above Optimal LDL: 110- 129 mg/dLBorderline High LDL: 130-159 mg/dLHigh LDL: 160-189 mg/dLVery High LDL: greater than or equal to 190 mg/dL HDL Cholesterol 45 >40 mg/dL [facility] Comment:Desirable HDL: great er than 40 mg/dL Note: This HDL assay may give artificially low results in patients with liver disease. Blood 04/05/2023 10:3 0 AM EST 04/05/2023 11:20 AM EST Houston Medina MD LAB BLOOD ORDERABLES Final Result [facility] [address] [place] [phone] * (ABNORMAL) POCT HGB A1C (04/02/2023 1:25 PM EST) Hemoglobin A1C 10.5(A) 4.0 - 6.0 % QC Media Lot # [id number] Lot# Expiration Date Blood 04/02/2023 1:25 PM EST Houston Medina MD POINT OF CARE TEST EN TER/EDIT ORDERABLES Final Result * ALBUMIN, RANDOM URINE W/CREATININE (05/26/2020 10:19 AM EDT) Pathologist [facility] Microalbumin Urine 2.0 See Note: mg/dL [facility] Comment: Reference Range: ?? Reference Range Not established Microalb/Creat Ratio 11 <30 mcg/mg creat [facility] Comment: ?? The ADA defines abnormalities in albumin excretion as follows: ?? Category ? Result (mcg/mg creatinine) ?? Normal ?<30 Microalbuminuria ? 30-299 ?? Clinical albuminuria ?? > OR = 300 ?? The ADA recommends that at least two of three specimens collected within a 3-6 month period be abnormal before considering a patient to be within a diagnostic category. Creatinine, Urine 178 20 - 320 mg/dL [facility] 05/26/2020 10:1 9 AM EDT Houston Medina MD LAB URINE ORDERABLES Final Result [facility] [address] from Last 3 Months or Most Recently Relevant to Health Maintenance Insurance [facility] [employer] [facility] - HSN PARTIAL (MEDICAID) Care Teams Basket Mender Relationship Specialty Start Date End Date Houston Sumner MD [address] [place] [phone] PCP - General Internal Medicine 06/02/14
--- OUTSIDE RECORDS SUMMARY | 2024-03-26 11:58 | XMS_ITS | Encounter Summary ---
Author Organization [employer] Address [address] [facility] 7[address] [place] [address] Care Team Providers Care Aviation Manager Name Role Phone Houston Sumner MD Primary Care Provide r Reason for Visit * Reason Comments Wister Encounter Details Date Type Department Care Team (Late st Contact Info) Description 03/25/2024 2:00 PM EST Office Visit [facility] ADULT DENTAL [address] [place] [address] Edi Arguello Social History Tobacco Use Types Packs/Day Years [...] Sign Reading Time Taken Comments Blood Pressure 130/90 03/25/2024 1:57 PM EST Pulse - - Temperature 24.4 ??C (76 ??F) 03/25/2024 1:57 PM EST Respiratory Rate - - Oxygen Saturation - - Inhaled Oxygen Concentration - - Weight - - Height - - Body Mass Index - - documented in this encounter Progress Notes * Edi Arguello - 03/25/2024 2:00 PM EST Patient ID: Олег Rangel is a 43 y.o. male. Time Out: Timeout Date: 03/25/24, Timeout Time: 1357 (core build up) Location: [facility] Tooth: #4 Procedure: Adventist Verified the above with patient, assistant front end manager, and provider. Confirmed via patient's chart, intraorally and by radiographs. Senior Marketing Associate: Yes. Language: Nepali. Senior Marketing Associate: Serena Rangel Chief Complaint Patient presents with Wister Medical Hx: Vitals: Blood pressure (!) 130/90, temperature (!) 76 ??F (24.4 ??C). Medications, Med Hx reviewed with patient and updated in chart. Consent Obtained: The risks, benefits, indications, potential complications, and alternatives were explained to the patient and informed consent was obtained with good understanding. Treatment Provided: Dental procedures in this visit D2950 - RESTORATIVE - OTHER RESTORATIVE SERVICES - CORE BUILDUP, INCLUDING ANY PINS WHEN REQUIRED 4 (Completed) Service provider: Edi Arguello Billing provider: Lang Spence DDS D9450 - ADJUNCTIVE GENERAL SERVICES - PROFESSIONAL VISITS - CASE PRESENTATION, SUBSEQUENT TO DETAILED AND EXTENSIVE TREATMENT PLANNING (Completed) Service provider: Edi Arguello Billing provider: Lang Bolano, DDS Diagnosis: DO #4 secondary caries, core build up Topical: 20% Benzocaine Anesthesia: 2% Lidocaine (Xylocaine) w/ 1:100,000 epinephrine Number of Cartridges: 2 Injection Type: Palatal infiltration, Middle superior alveolar nerve block, and Local Confirmed profound anesthesia. Isolation: high speed suction and cotton rolls Prep: All caries removed, Existing mandaeism removed, and Preparation finalized Matrix: [place]fflemire and wedge Etch: 37% Phosphoric Acid Etch Desensitizer: None Liner/Base: None Greenberg: I-Greenberg Adventist Material: Filtek [place] Flowable Composite Shade: A2 Detected two uneven dark spots on right palatal tuberosity. No sign of amalgam particles in Rx. Took pictures and referred to oral surgeon. Polished. Occlusion & contacts verified. Patient satisfied with comfort and esthetics. Patient tolerated procedure well. Post-operative instructions were given. Patient departed alert, oriented, and in stable condition. NV: Wister prep Clearing Supervisor: Sydney Reaves Dentist: Edi Arguello documented in this encounter Plan of Treatment Upcoming Encounters Date Type Department Care Team (Late st Contact Info) Description 03/27/2024 9:00 AM EST Office Visit [facility] W[facility] [address] [place] [phone] 04/06/2024 2:00 PM EST Office Visit [facility] ADULT DENTAL [address] [place] [phone] 04/07/2024 1:30 PM EST Office Visit [facility] MEDICINE [address] [place] [phone] Houston Sumner MD [address] [place] [phone] Scheduled Orders Name Type Priority Associated Diagnoses Orde r Schedule CONSULTATION - DIAGNOSTIC SERVICE PROVIDED BY DENTIST OR PHYSICIAN OTHER THAN REQUESTING DENTIST OR PHYSICIAN Dental Routine 1 Occurrenc es starting 03/25/2024 documented as of this encounter Procedures Procedure Name Priority Date/Time Associated Diagnosis Comments 4 CORE BUILDUP, INCL ANY PINS WHEN REQ Routine 03/25/2024 2:00 PM EST CASE PRESENTATION, DETAILED AND EXTENSIVE TREATMENT PLANNING Routine 03/25/2024 2:00 PM EST documented in this encounter Visit Diagnoses Not on filedocumented in this encounter Additional Health Concerns Assessment Noted Time PHQ-9 Depression Total Score: 5 03/29/19 23 2:24 PM EST documented as of this encounter Care Teams Aviation Manager Relationship Specialty Start Date End Date Houston Sumner MD [address] [place] [address] PCP - General Internal Medicine 06/02/14 documented as of this encounter
--- OUTSIDE RECORDS SUMMARY | 2024-03-26 11:58 | XMS_ITS | Encounter Summary ---
Author Organization [employer] Address [address] [facility] 7[address] [place] [address] Care Team Providers Care Body Component Engineer Name Role Phone Houston Sumner MD Primary Care Provide r Reason for Visit * Reason Comments Dental Exam Encounter Details Date Type Department Care Team (Late st Contact Info) Description 03/17/2024 1:00 PM EST Office Visit [facility] ADULT DENTAL [address] [place] [address] Edi Arguello Social History Tobacco Use Types Packs/Day Years Used Date Smoking Tobacco: Never Passive Smoke Exposure: Never Smokeless Tobacco: Never Alcohol Use Standard Drinks/Week Comments Defer 0 (1 standard drink = 0.6 oz pur e alcohol) Depression Answer Date Recorded Patient Health Questionnaire-9 Score 5 03/29/2022 Housing Stability Answer Date Recorded What is your housing situation today? I have frankoariel mjeía 12/17/[address] you li ve. Do you have problems with any of the following? None of the above 12/17/2022 Food Insecurity Answer Date Recorded Within the past 12 months, y ou worried that your food would run out before you got money to buy more: Never True 12/17/2022 Within the past 12 months,th e food you bought just didn't last and you didn't have enough money to get more: Never True 07/2022 Transportation Answer Date Recorded In the past 12 months, has l ack of transportation kept you from medical appts, meetings, work or from getting things needed for daily living? No 12/17/2022 Utilities Answer Date Recorded In the past 12 months, has t he electric, gas, oil or water company threatened to shut off services in your home? No 12/17/2022 Depression Answer Date Recorded Patient Health Questionnaire-2 [...] Sign Reading Time Taken Comments Blood Pressure 142/94 03/17/2024 1:11 PM EST Pulse - - Temperature - - Respiratory Rate - - Oxygen Saturation - - Inhaled Oxygen Concentration - - Weight - - Height - - Body Mass Index - - documented in this encounter Progress Notes * Edi Arguello - 03/17/2024 1:00 PM EST Dental procedures in this visit D0150 - COMPREHENSIVE ORAL EVALUATION - NEW OR ESTABLISHED PATIENT (Completed) Service provider: Edi Arguello Billing provider: Lang Spence DDS D1110 - PROPHYLAXIS - ADULT (Completed) Service provider: Edi Arguello Billing provider: Lang Spence DDS D0210 - DIAGNOSTIC - DIAGNOSTIC IMAGING - INTRAORAL - COMPREHENSIVE SERIES OF RADIOGRAPHIC IMAGES (Completed) Service provider: Edi Arguello Billjewels provider: Lang Spence DDS D9450 - ADJUNCTIVE GENERAL SERVICES - PROFESSIONAL VISITS - CASE PRESENTATION, SUBSEQUENT TO DETAILED AND EXTENSIVE TREATMENT PLANNING (Completed) Service provider: Edi Arguello Billing provider: Lang Spence DDS Patient ID: Олег Rangel is a 43 y.o. male. Time Out: Timeout Date: 03/17/24, Timeout Time: 1310 (comp exam cleaning) Location: [facility] Tooth: Maxilla and Mandible Procedure: Exam, X-rays, and Prophylaxis Verified the above with patient, personal banking assistant, and provider. Confirmed via patient's chart, intraorally and by radiographs. End Trimmer: not applicable Chief Complaint Patient presents with Dental Exam Medical Hx: Vitals: Blood pressure (!) 142/94. Past Medical History: Diagnosis Date Diabetes mellitus ([facility]) Hypertension Medications: Outpatient Encounter Medications as of 03/17/2024 Medication Sig Dispense Refill aspirin 81 MG EC tablet Take 1 tablet by mouth at bed time. atorvastatin (Lipitor) 20 MG tablet Take 20 mg by mouth Once per day. dulaglutide (Trulicity) 0.75 MG/0.5ML solution pen-injector Inject 0.75 mg under the skin 1 (one) time per week. 4 each 3 FREESTYLE LITE test strip Test 3 times a day, pt on Insulin 100 each 11 insulin glargine (Lantus SoloStar) 100 UNIT/ML pen INJECT 18 UNITS SUBCUTANEOUSLY DIRECTED 30 mL1 lisinopril 20 MG tablet Take 1 tablet (20 mg) by mouth in the morning. 30 tablet 6 metFORMIN XR (Glucophage-XR) 500 MG 24 hr tablet TAKE 2 TABLETS BY MOUTH TWICE DAILY IN THE MORNINGAND IN THE EVENING WITH MEALS 120 tablet 6 [] acetaminophen (Tylenol) 500 MG tablet Take 1 tablet (500 mg) by mouth every 8 (eight) hours if needed for mild pain for up to 7 days. 21 tablet 0 [] amoxicillin (Amoxil) 500 MG capsule Take 1 capsule (500 mg) by mouth every 8 (eight) hours for 7 days. 21 capsule 0 [] ibuprofen 400 MG tablet Take 1 tablet (400 mg) by mouth 3 times daily for 7 days. 21 tablet 0 No facility-administered encounter medications on file as of 03/17/2024. Objective HPI Soft Tissue Exam No findings documented this visit Head and Neck Exam: Lymph Nodes, Lips, Palate, Buccal Mucosa, Floor of Mouth, Tongue, Tonsils, Alveolar Ridges, Oropharynx, Salivary Ducts, and Vestibules Details: No lesions in gingiva or mucosa, no swelling in head and neck area. Lingual floor normal, oropharynx area normal. OCS: negative Dental Exam Radiographic Interpretation: Associated radiographs for today's visit were reviewed and finding(s) were discussed with the patient. Findings include: 4 bitewing x-rays, PA tooth #3 and #4 O caries and defective nondenominational Hard Tissue Exam: Decay noted - see charting and treatment plan Oral Cancer Risk: Minimal risk Oral Hygiene Instructions: Ing[place] two times daily, modified naik technique, Floss daily, Soft bristle toothbrush, [place] Tongue Caries Risk Assessment: Medium- one risk factor Assessment/Plan Patient tolerated procedure well, all questions answered and expressed understanding. Dismissed in good condition. NV: core build up #4 Video Game Engineer: Estefani Cortez Dentist: Edi Arguello documented in this encounter Plan of Treatment Upcoming Encounters Date Type Department Care Team (Late st Contact Info) Description 03/27/2024 9:00 AM EST Office Visit [facility] WALK[facility]IN CENTER [address] [place] [address] 04/06/2024 2:00 PM EST Office Visit [facility] ADULT DENTAL [address] [place] [address] 04/07/2024 1:30 PM EST Office Visit [facility] MEDICINE [address] [place] [address] Houston Sumner MD [address] [place] [address] Scheduled Orders Name Type Priority Associated Diagnoses Orde r Schedule 4 4 CROWN - PORCELAIN/CERAMIC Dental Routine 1 Occurrences starting 03/17/2024 4 4 CROWN PREP Dental Routine 1 Occurren erasto starting 03/25/2024 documented as of this encounter Procedures Procedure Name Priority Date/Time Associated Diagnosis Comments PROPHYLAXIS - ADULT Routine 03/17/2024 1 :00 PM EST INTRAORAL - COMPLETE SERIES OF RADIOGRAPHIC IMAGES Routine 03/17/2024 1:00 PM EST COMPREHENSIVE ORAL EVALUATION - NEW OR ESTABLISHED PATIENT Routine 03/17/2024 1:00 PM EST CASE PRESENTATION, DETAILED AND EXTENSIVE TREATMENT PLANNING Routine 03/17/2024 1:00 PM EST 12 PONTIC - PORCELAIN/CERAMIC Routine 03/17/2024 12:00 AM EST 13 PONTIC - PORCELAIN/CERAMIC Routine 03/17/2024 12:00 AM EST 30 CROWN - PORCELAIN/CERAMIC Routine 03/17/2024 12:00 AM EST 11 ABUTMENT SUPPORTED PORCELAIN/CERAMIC CROWN Routine 03/17/2024 12:00 AM EST 14 ABUTMENT SUPPORTED PORCELAIN/CERAMIC CROWN Routine 03/17/2024 12:00 AM EST 4 ROOT CANAL Routine 03/17/2024 12:00 AM EST 30 ROOT CANAL Routine 03/17/2024 12:00 AM EST documented in this encounter Visit Diagnoses Not on filedocumented in this encounter Additional Health Concerns Assessment Noted Time PHQ-9 Depression Total Score: 5 03/29/19 23 2:24 PM EST documented as of this encounter Care Teams Body Component Engineer Relationship Specialty Start Date End Date Houston Sumner MD [address] [place] [address] PCP - General Internal Medicine 06/02/14 documented as of this encounter
--- OUTSIDE RECORDS SUMMARY | 2024-03-26 11:58 | XMS_ITS | Encounter Summary ---
Author Organization [employer] Address [address] [facility] 7[address] [place] [address] Care Team Providers Care Ic Design Manager Name Role Phone Houston Sumner MD Primary Care Provide r Reason for Visit * Reason Comments Dental Pain Dental pain on the u pper left for 4 days Encounter Details Date Type Department Care Team ([facility] st Contact Info) Description 03/06/2024 11:30 AM EST Office Visit [facility] [address] [place] [address] Josias Orta DDS [address] [place] [address] Social History Tobacco Use Types Packs/Day Years Used Date Smoking Tobacco: Never Passive Smoke Exposure: Never Smokeless Tobacco: Never Alcohol Use Standard Drinks/Week Comments Defer 0 (1 standard drink = 0.6 oz pur e alcohol) Depression Answer Date Recorded Patient Health Questionnaire-9 Score 5 03/29/2022 Housing Stability Answer Date Recorded What is your housing situation today? I have franko mejía 12/17/[address] you li [...] Reading Time Taken Comments Blood Pressure 140/88 03/06/2024 11:40 AM EST Pulse 73 03/06/2024 11:40 AM EST Temperature - - Respiratory Rate - - Oxygen Saturation - - Inhaled Oxygen Concentration - - Weight - - Height - - Body Mass Index - - documented in this encounter Progress Notes * Josias Orta DDS - 03/06/2024 11:30 AM EST Dental procedures in this visit D9110 - ADJUNCTIVE GENERAL SERVICES - UNCLASSIFIED TREATMENT - PALLIATIVE TREATMENT OF DENTAL PAIN - PER VISIT (Completed) Service provider: Josias Orta DDS Billing provider: Josias Orta DDS D0270 - BITEWING - SINGLE RADIOGRAPHIC IMAGE (Completed) Service provider: Josias Orta DDS Billing provider: Josias Orta DDS D0220 - INTRAORAL - PERIAPICAL FIRST RADIOGRAPHIC IMAGE (Completed) Service provider: Josias Orta DDS Billing provider: Josias Orta DDS D9450 - ADJUNCTIVE GENERAL SERVICES - PROFESSIONAL VISITS - CASE PRESENTATION, SUBSEQUENT TO DETAILED AND EXTENSIVE TREATMENT PLANNING (Completed) Service provider: Josias Orta DDS Billing provider: Josias Orta DDS Patient ID: Олег Rangel is a 43 y.o. male. Time Out: No data recorded Location: [facility] Tooth: #15 Procedure: Exam Verified the above with patient, preschool assistant, and provider. Confirmed via patient's chart, intraorally and by radiographs. Barn Manager: not applicable Chief Complaint Patient presents with Dental Pain Dental pain on the upper left for 4 days Medical Hx: Vitals: Blood pressure 140/88, pulse 73. Past Medical History: Diagnosis Date Diabetes mellitus ([facility]) Hypertension Medications: Outpatient Encounter Medications as of 03/06/2024 Medication Sig Dispense Refill aspirin 81 MG EC tablet Take 1 tablet by mouth at bed time. insulin glargine (Lantus SoloStar) 100 UNIT/ML pen INJECT 18 UNITS SUBCUTANEOUSLY DIRECTED 30 mL1 lisinopril 20 MG tablet Take 1 tablet (20 mg) by mouth in the morning. 30 tablet 6 metFORMIN XR (Glucophage-XR) 500 MG 24 hr tablet TAKE 2 TABLETS BY MOUTH TWICE DAILY IN THE MORNINGAND IN THE EVENING WITH MEALS 120 tablet 6 acetaminophen (Tylenol) 500 MG tablet Take 1 tablet (500 mg) by mouth every 8 (eight) hours if needed for mild pain for up to 7 days. 21 tablet 0 amoxicillin (Amoxil) 500 MG capsule Take 1 capsule (500 mg) by mouth every 8 (eight) hours for 7 days. 21 capsule 0 atorvastatin (Lipitor) 20 MG tablet Take 20 mg by mouth Once per day. dulaglutide (Trulicity) 0.75 MG/0.5ML solution pen-injector Inject 0.75 mg under the skin 1 (one) time per week. 4 each 3 FREESTYLE LITE test strip Test 3 times a day, pt on Insulin 100 each 11 ibuprofen 400 MG tablet Take 1 tablet (400 mg) by mouth 3 times daily for 7 days. 21 tablet 0 No facility-administered encounter medications on file as of 03/06/2024. Subjective: Pain: constant, severe Duration: 2 days Objective: Tooth: #15 Radiographs Taken: BW(s) and PA(s) Radiographic Findings: Decay Clinical Findings: Deep proximal caries #15; Non-restorable Swelling: No swelling Endo Testing: N/A Perio: N/A Other Findings: Opposing tooth #18 is missing; tooth #17 is mesially tilted, needs to be extracted. 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 Dismissed in good condition. NV: Extraction Paint Roller Cover Machine Setter: Liudmila Roca Dentist: Josias Orta DDS documented in this encounter Plan of Treatment Upcoming Encounters Date Type Department Care Team (Late st Contact Info) Description 03/27/2024 9:00 AM EST Office Visit [facility] [address] [place] [address] 04/06/2024 2:00 PM EST Office Visit [facility] ADULT DENTAL [address] [place] [address] 04/07/2024 1:30 PM EST Office Visit [facility] MED[facility]INE [address] [place] [address] [phone] Houston Sumner MD [address] [place] [phone] documented as of this encounter Procedures Procedure Name Priority Date/Time Associated Diagnosis Comments PALLIATIVE (EMERGENCY) TREATMENT OF DENTAL PAIN - MINOR PROCEDURE Routine 03/06/2024 11:30 AM EST INTRAORAL - PERIAPICAL FIRST RADIOGRAPHIC IMAGE Routine 03/06/2024 11:30 AM EST CASE PRESENTATION, DETAILED AND EXTENSIVE TREATMENT PLANNING Routine 03/06/2024 11:30 AM EST BITEWING - SINGLE RADIOGRAPHIC IMAGE Routine 03/06/2024 11:30 AM EST documented in this encounter Visit Diagnoses Not on filedocumented in this encounter Additional Health Concerns Assessment Noted Time PHQ-9 Depression Total Score: 5 03/29/19 23 2:24 PM EST documented as of this encounter Care Teams Ic Design Manager Relationship Specialty Start Date End Date Houston Sumner MD [address] [place] [phone] PCP - General Internal Medicine 06/02/14 documented as of this encounter
--- OUTSIDE RECORDS SUMMARY | 2024-03-26 11:58 | XMS_ITS | Encounter Summary ---
Author Organization [employer] Address [address] [facility] [address] [place] [address] Care Team Providers Care Clothing Cutter Name Role Phone Houston Sumner MD Primary Care Provide r Reason for Visit * Reason Comments Dental Pain Encounter Details Date Type Department Care Team (Late st Contact Info) Description 03/09/2024 11:30 AM EST Office Visit [facility] [address] [place], [place] [phone] Lang Spence DDS [address] [place], [place] [phone] Symptomatic irreversible pulpitis (Primary Dx) Social History Tobacco Use Types Packs/Day Years [...] Sign Reading Time Taken Comments Blood Pressure 170/90 03/09/2024 11:24 AM EST Pulse - - Temperature - - Respiratory Rate - - Oxygen Saturation - - Inhaled Oxygen Concentration - - Weight - - Height - - Body Mass Index - - documented in this encounter Progress Notes * Lang Spence DDS - 03/09/2024 11:30 AM EST Patient ID: Олег Rangel is a 43 y.o. male. Time Out: Timeout Date: 03/09/24, Timeout Time: 1125 Location: [facility] Tooth: Maxilla and #15 per pt request Procedure: Extraction and Emergency Verified the above with patient, refinery operator assistant, and provider. Confirmed via patient's chart, intraorally and by radiographs. Car Oiler: not applicable Chief Complaint Patient presents with Dental Pain Олег was recently DX and [place] planned for RCT & C ; However, after discussing RBA trying convince pt to keep tooth, explained about persisting pain and alternatives, Олег requested to proceedwith extraction. Medical Hx: Vitals: Blood pressure (!) 170/90. Past Medical History: Diagnosis Date Diabetes mellitus ([facility]) Hypertension Medications: Outpatient Encounter Medications as of 03/09/2024 Medication Sig Dispense Refill acetaminophen (Tylenol) 500 MG tablet Take 1 tablet (500 mg) by mouth every 8 (eight) hours if needed for mild pain for up to 7 days. 21 tablet 0 amoxicillin (Amoxil) 500 MG capsule Take 1 capsule (500 mg) by mouth every 8 (eight) hours for 7 days. 21 capsule 0 aspirin 81 MG EC tablet Take 1 [...] daily for 7 days. 21 tablet 0 insulin glargine (Lantus SoloStar) 100 UNIT/ML pen INJECT 18 UNITS SUBCUTANEOUSLY DIRECTED 30 mL1 lisinopril 20 MG tablet Take 1 tablet (20 mg) by mouth in the morning. 30 tablet 6 metFORMIN XR (Glucophage-XR) 500 MG 24 hr tablet TAKE 2 TABLETS BY MOUTH TWICE DAILY IN THE MORNINGAND IN THE EVENING WITH MEALS 120 tablet 6 No facility-administered encounter medications on file as of 03/09/2024. Consent Obtained: The risks, benefits, indications, potential complications, and alternatives were explained to the patient and informed consent was obtained with good understanding. Treatment Provided: Dental procedures in this visit D7140 - EXTRACTION, ERUPTED TOOTH OR EXPOSED ROOT (ELEVATION AND/OR FORCEPS REMOVAL) 15 (Completed) Service provider: Lang Spence DDS Billing provider: Lang Spence DDS D9450 - ADJUNCTIVE GENERAL SERVICES - PROFESSIONAL VISITS - CASE PRESENTATION, SUBSEQUENT TO DETAILED AND EXTENSIVE TREATMENT PLANNING (Completed) Service provider: Lang Spence DDS Billing provider: Lang Spence DDS Diagnosis: Symptomatic Topical: 20% Benzocaine Anesthesia: 2% Lidocaine (Xylocaine) w/ 1:100,000 epinephrine Number of Cartridges: 1 Injection Type: Buccal infiltration, Palatal infiltration, and Intrapapillary injection Confirmed profound anesthesia. Pharyngeal curtain and bite block placed. Removed tooth with elevators and forceps. Apices intact. Surgical Extraction: Yes, #15 Socket curetted & irrigated with sterile water. Compressed alveolar bone. Sutures: None Needed All adjacent teeth intact. Hemostasis achieved. Complications: None. Pt tolerated procedure well. Emphasized to finish prescription started on 03-06-23 Written and verbal post-op instructions given. Patient discharged in stable condition; ambulatory, alert, and oriented. NV: F/U as needed / EXAM Windshield Installer: Daisy Roberson Dentist: Lang Spence DDS documented in this encounter Plan of Treatment Upcoming Encounters Date Type Department Care Team (Late st Contact Info) Description 03/27/2024 9:00 AM EST Office Visit [facility] [address] [place] [address] 04/06/2024 2:00 PM EST Office Visit [facility] [address] [place] [address] 04/07/2024 1:30 PM EST Office Visit [facility] [address] [place] [phone] Houston Sumner MD [address] [place] [phone] documented as of this encounter Procedures Procedure Name Priority Date/Time Associated Diagnosis Comments 15 EXTRACTION, ERUPTED TOOTH OR EXPOSED ROOT (ELEVATION/FORCEPS REMOVAL) Routine 03/09/2024 11:30 AM EST CASE PRESENTATION, DETAILED AND EXTENSIVE TREATMENT PLANNING Routine 03/09/2024 11:30 AM EST 14 CROWN - PORCELAIN/CERAMIC Routine 03/09/2024 12:00 AM EST 18 EXTRACTION Routine 03/09/2024 12:00 AM EST 16 EXTRACTION Routine 03/09/2024 12:00 AM EST 14 ROOT CANAL Routine 03/09/2024 12:00 AM EST documented in this encounter Visit Diagnoses Diagnosis Symptomatic irreversible pulpitis- Primary documented in this encounter Additional Health Concerns Assessment Noted Time PHQ-9 Depression Total Score: 5 03/29/19 23 2:24 PM EST documented as of this encounter Care Teams Clothing Cutter Relationship Specialty Start Date End Date Houston Sumner MD [address] [place] [phone] PCP - General Internal Medicine 06/02/14 documented as of this encounter
== END 2024-03-25 00:01 | disposition home or self-care (01) ==
LOC: HO.HHCLNP
PROVIDERS: Visit Provider Emergency Medicine
DX: L03.011 Cellulitis of right finger (principal)
CPT/HCPCS: 87070; 87077; 87186; 87205